=== PATIENT | female | born 1970 | race Caucasian/White ===

== ENCOUNTER 2016-11-01 18:35 | Inpatient (IN) | payer OTHER ==
--- NOTE | ~2016-11-01 | CO ---
Unit #: [id number] #: [id number] Patient: CELSO VALDEZ [id number] [place], [place] [address] [id number] I MR#: [id number] NAME: CELSO VALDEZ ROOM: 214 Age: 46 Sex: F Admission Date: 11/01/2016 : 1970 Attending Physician: Brooks Watson M.D. Consultation Date: 11/02/2016 CONSULTATION REPORT REASON FOR CONSULT Sleep apnea. HISTORY OF PRESENT ILLNESS This is a 46-year-old female who is well known to me from my office for sleep apnea and possible asthma/COPD, who presented to [facility] as a transfer from [facility] for possible incision and drainage by Surgery. Patient was seen last month at [facility] for wound infection, and she was transferred to [facility] for rehab and wound care. Apparently, patient was doing okay and getting better up until a couple of days ago when she started having some fever and started feeling sick again. She was evaluated by the infectious disease service who decided that patient needed more wound debridement, and she needed to be transferred back. Patient had a high fever at [place], and she was nauseated and vomited multiple times. She denied any cough, chest pain, or shortness of breath. Patient is well known to have sleep apnea, but she lost her CPAP and currently she does not have a new CPAP. PAST MEDICAL HISTORY 1. Chronic obstructive pulmonary disease. 2. Necrotizing fasciitis. 3. Chronic kidney disease. 4. Chronic anemia. 5. Morbid obesity. 6. Depression. 7. Hyperlipidemia. PAST SURGICAL HISTORY 1. Hand surgery. 2. Hardware removal of intramedullary screw from the third toe along with debridement of an abscess in April 2016. 3. Hysterectomy. 4. Cholecystectomy. SOCIAL HISTORY No history of alcohol, drug abuse, or smoking. FAMILY HISTORY Unremarkable. Unit #: [id number] #: [id number] Patient: CELSO VALDEZ ALLERGIES TETRACYCLINE, SULFA, VANCOMYCIN, ZOFRAN, AND HYDROCHLOROTHIAZIDE. HOME MEDICATIONS 1. Norvasc. 2. Pristiq. 3. Lopressor. 4. Protonix. 5. Synthroid. 6. Neurontin. 7. Singulair. 8. Hydralazine. 9. Lipitor. REVIEW OF SYSTEMS A 12-point review of systems was obtained from the patient and was negative except for what was mentioned in the History of Present Illness. PHYSICAL EXAMINATION GENERAL: Patient is not in acute distress. She is slightly sleepy. HEENT: Atraumatic, normocephalic. PERRLA. EOMI. NECK: Supple. No JVD, no lymphadenopathy. CHEST: Decreased breath sounds bilaterally but no wheezing. HEART: S1 and S2. No murmur, gallops, or rubs. ABDOMEN: Soft and nontender. Bowel sounds are positive. No hepatosplenomegaly. EXTREMITIES: Right lower extremity wound is wrapped. CENTRAL NERVOUS SYSTEM: Awake, alert, and oriented x3. No focal motor/sensory deficits. DIAGNOSTIC STUDIES LABORATORY: Creatinine 5.3. White blood count 4.1 and hemoglobin 7.2. ASSESSMENT 1. Wound dehiscence, right upper thigh, medial aspect, plus right lower leg medial and lateral aspect. 2. Cellulitis/wound infection. 3. Obstructive sleep apnea. 4. Diabetes. 5. End-stage renal disease. 6. Chronic obstructive pulmonary disease. 7. Hypertension. 8. Hyperlipidemia. PLAN 1. Patient is hemodynamically stable on room air. She is refusing to wear our BiPAP because she is claustrophobic. She is interested in CPAP only as an outpatient. 2. IV antibiotics per Infectious Disease pending surgical evaluation. 3. Bronchodilator. 4. Patient needs strict control of her blood sugar. 5. Blood pressure control. 6. DVT prophylaxis. 7. Physical therapy. I would like to thank Dr. Luque for allowing me to be part of this patient's care. Unit #: [id number] #: [id number] Patient: CELSO VALDEZ Dictated by... Clarence Roman TD: 11/02/2016 16:20 JOB #: [id number] CONSULTATION REPORT X JENNIFER GARCIA MD CONSULTATION REPORT
--- NOTE | ~2016-11-01 | BMI ---
[facility] Nutrition Therapy DATE: 11/02/16 Patient: CELSO VALDEZ Physician: ROSEMARIE Address: [address] [facility] Room/Bed: [address] [place] [address], Zip: [place] [address] Admit Date: 11/01/16 Date of : [birth year] Height: 5 4 Weight: 249 113 HIGH BMI NOTE: DX: 46 Y.O. FEMALE ADMITTED FOR CELLULITIS ANTHROPOMETRICS: 5'4", WT: 249# (113 KG), BMI: 42.7 DIET: CC INTERVENTION: 1. CC DIET RECOMMENDATIONS: 1. RECOMMEND TO ADD HH TO CURRENT DIET ORDER ABOVE TO PROMOTE GRADUAL WEIGHT LOSS TOWARDS HEALTHY BMI (19.0-25.0) OR +/-10%IBW RD WILL F/U PER PROTOCOL Respectfully, SOFI STOCKTON MS, RD, LD Food and Nutritional Services [facility] cc: client file
--- NOTE | ~2016-11-01 | HP ---
Unit #: [id number] #: [id number] Patient: MARGRET VALDEZ [id number] [address] [address] [id number] I MR#: [id number] NAME: MARGRET VALDEZ ROOM: 214 Age: 46 Sex: F Admission Date: 11/01/2016 : 1970 Attending Physician: Brooks Watson M.D. Referring Physician: No Primary Care Physician Primary Care Physician: No Primary Care Physician HISTORY AND PHYSICAL CHIEF COMPLAINT Transfer from [place] at [facility] for infected leg. HISTORY OF PRESENTING ILLNESS Ms. Margret Valdez is a 46-year-old morbidly obese female with multiple medical problems including diabetes mellitus, chronic kidney disease on hemodialysis, COPD, hypertension, hyperlipidemia, depression and was discharged from [facility] on October 19, 2016 after being treated for acute respiratory failure, COPD exacerbation and also lower extremity cellulitis, status post I/D by Dr. Foster for necrotizing fasciitis. Patient was discharged to [place] at [facility] for ongoing wound care and to complete PT/OT. According to patient, she was doing okay and then suddenly she started having worsening of pain. She was seen by infectious disease yesterday, Dr. Witt, started on IV antibiotics and today, as per Dr. Luke, she needed opening of her wound for cleaning and was transferred to [facility]. She is complaining of fever. According to her she had temperature of 101 yesterday. She has been having nausea and vomiting for the last three days. She does not complain of chest pain, no shortness of breath, no abdominal pain, no constipation or diarrhea, no dizziness. PAST MEDICAL HISTORY Past medical history as above which includes: 1. COPD. 2. Recent right leg I/D x2 in October 2016 for necrotizing fasciitis. 3. Chronic kidney disease, on hemodialysis. 4. Chronic anemia. 5. Morbid obesity. 6. Depression. 7. Hyperlipidemia. HOME MEDICATION Home medication is: 1. NovoLog sliding scale. 2. Tylenol 650 q.4 h. p.r.n. 3. Phenergan 12.5 mg IV q.6 h. p.r.n. 4. PhosLo 1334 mg t.i.d. 5. Norvasc 10 mg daily. 6. Acidophilus one capsule daily. 7. Nebulizer treatment q.6 h. 8. Pristiq 50 mg daily. 9. Antidiarrheal 4 mg q.6 h. p.r.n. 10. Aranesp 60 mcg injection weekly. Unit #: [id number] #: [id number] Patient: MARGRET VALDEZ 11. Metoprolol 100 mg q.12 h. 12. Zosyn 3.375 g injection q.12 h. 13. Morphine sulfate 1 mg IV q.4 h. p.r.n. 14. Zyvox 600 mg IV q.12 h. 15. Dakin's Solution modified q.12 h. 16. Protonix 40 mg daily. 17. Synthroid 0.05 mg daily. 18. Gabapentin 300 mg q.h.s. 19. Singulair 10 mg daily. 20. Hydralazine 10 mg q.4 h. 21. Lipitor 40 mg q.h.s. 22. Calcium 1200 mg daily. 23. B12 1000 mcg p.o. daily. PAST SURGICAL HISTORY 1. History of right third toe metatarsophalangeal joint disarticulation which was done on May 07, 2016. 2. Hardware removal of intramedullary screw from the third toe along with a debridement of an abscess in April 2016. 3. Hysterectomy. 4. Cholecystectomy. SOCIAL HISTORY She has no history of smoking, alcohol or drug abuse. FAMILY HISTORY Family history is unremarkable. ALLERGIES Tetracycline, sulfa, vancomycin, Zofran, hydrochlorothiazide. REVIEW OF SYMPTOMS As per history of presenting illness. PHYSICAL EXAMINATION GENERAL APPEARANCE: Patient is lying in bed, does not seem to be in any respiratory distress. She is awake, alert and oriented x3. VITAL SIGNS: Blood pressure 146/79. Respiratory rate 18. Pulse is 80. Temperature 98.4. HEENT: Head is normocephalic. Eye movements are normal. NECK: Neck is supple. CHEST: Has fair air entry, no additional sounds. CVS: S1, S2 positive, regular rhythm. ABDOMEN: Abdomen is soft. No tenderness. EXTREMITIES: Right lower extremity there is a wound dehiscence on the right medial aspect of the thigh, wound dehiscence on the right medial aspect of the lower leg and drainage, on the right lower leg on the lateral aspect there is drainage also present. Patient has had surgery on the foot. GROUP CHIEF OPERATOR: Awake, alert and oriented x3. No focal neurological deficits. DIAGNOSTIC STUDIES LABORATORY: Workup is pending. ASSESSMENT Patient is being admitted to a med/surg unit with: 1. Wound dehiscence right upper thigh medial aspect plus right lower leg medial and lateral aspect. Unit #: [id number] #: [id number] Patient: MARGRET VALDEZ 2. Cellulitis/wound infection. 3. Fever per patient 101 last night. 4. Diabetes mellitus type 2. 5. Chronic kidney disease on hemodialysis. 6. Chronic obstructive pulmonary disease. 7. Morbid obesity. 8. Hypertension. 9. Hyperlipidemia. 10. Depression. PLAN Plan is admit to med/surg unit. IV Zyvox 600 mg q.12 h. is being started. IV Zosyn 3.375 g q.12 h. is being started. LSA will be consulted; she may need I/D again. Wound Care consult will be done. Home medications have been reviewed and adjusted. Accu-Chek a.c. and h.s. with insulin sliding scale is being started. Blood cultures will be done. Labs will be repeated today. Dr. Patel to consult for ongoing hemodialysis. PT and INR will be done. Lactic acid will be done. Plan of care has been discussed with patient and patient's family at length. She does verbalize understanding. Dictated by Clarence Lopez/caridad TD: 11/01/2016 20:04 JOB #: [id number] HISTORY AND PHYSICAL X Naila Luque MD X HISTORY AND PHYSICAL
--- NOTE | ~2016-11-01 | CO ---
Unit #: [id number] #: [id number] Patient: CELSO VALDEZ [id number] [address] [address] [id number] I MR#: [id number] NAME: CELSO VALDEZ ROOM: 214 Age: 46 Sex: F Admission Date: 11/01/2016 : 1970 Attending Physician: Brooks Watson M.D. Primary Care Physician: Primary Care Physician No Consultation Date: 11/02/2016 CONSULTATION REPORT REASON FOR CONSULTATION Acute on chronic kidney disease. HISTORY OF PRESENT ILLNESS Ms. Valdez is a 46-year-old female, well known to us here at [facility] as we had seen her during her last admission here before being transferred to [place] for ongoing care. During that admission, she had developed acute on chronic kidney disease requiring dialysis likely related to acute tubular necrosis from sepsis syndrome and hypotension. The patient has remained dialysis dependent at [place] and is due for dialysis today. We have already made arrangements for that. The patient does still have some swelling. She was transferred here, because she needs some further debridement on her right leg. ID and surgery are seeing her. She denies any chest discomfort or shortness of breath. She says she is making a little bit more urine than when she left here previously. PAST MEDICAL HISTORY Significant for chronic kidney disease, stage 3 due to diabetes; hypertension; peripheral vascular disease; history of osteomyelitis; hypertension; obesity; obstructive sleep apnea; COPD; GERD; history of migraines; chronic anemia. PAST SURGICAL HISTORY Cholecystectomy, hysterectomy, and she has had toe amputations. CURRENT MEDICATIONS As follows; Lovenox 30 mg subcu daily, Aranesp 60 mcg subcu weekly, Os-Issac D b.i.d., vitamin B12 daily, Lipitor 40 mg at bedtime, Singulair 10 mg a day, Neurontin 300 mg at bedtime, Synthroid 50 mcg daily, Protonix 40 mg a day, metoprolol 100 mg every 12 hours, Pristiq 50 mg a day, probiotic daily, Norvasc 10 mg a day, PhosLo 2 tablets t.i.d. with meals, sliding scale insulin, linezolid 600 mg IV q.12 hours, Zosyn 3.375 g IV q.12 hours and p.r.n. ALLERGIES She has quoted allergies to hydrocodone, tetracycline, Bactrim, adhesive tape, IV magnesium, Zofran, vancomycin, and Levaquin. FAMILY HISTORY Negative for kidney problems. There is a family history of diabetes and hypertension. SOCIAL HISTORY The patient does not smoke or drink. Currently, no history of drug use. Unit #: [id number] #: [id number] Patient: CELSO VALDEZ REVIEW OF SYSTEMS A complete 12-point review of systems was completed with the above findings. In addition, she has had some low-grade fevers, none currently. No headaches. No dizziness. No nosebleed, sore throat, or earache. No chest pain or palpitations. No cough or hemoptysis. No nausea or vomiting. No abdominal pain. No rash or itching. No flank pain. No night sweats or hot flashes. No intolerance to heat or cold. No bleeding issues. Pain appears to be controlled. Unless otherwise indicated, the review of systems was negative. PHYSICAL EXAMINATION VITAL SIGNS: The patient is afebrile, pulse 72, respiratory rate 16, and blood pressure 149/78. GENERAL: This is a pleasant 46-year-old white female, who is alert and oriented x3, currently in no acute distress. HEENT: Head is atraumatic and normocephalic. Eyes show pale conjunctivae with no scleral icterus. No nasal drainage or nosebleed. Oropharynx is moist. She does have a narrow posterior pharyngeal airway. NECK: Thick with no JVD. HEART: Regular rate and rhythm with no murmur or rub appreciated. LUNGS: Clear anteriorly with no wheezing or rhonchi. Breathing is nonlabored. ABDOMEN: Soft, protuberant, nontender. Bowel sounds are present. EXTREMITIES: Right lower extremity has a wound dressing on it. Left lower extremity is noteworthy for 1+ pitting edema. SKIN: Without rashes. VASCULAR: The patient does have a tunneled catheter in place in her chest with no drainage or redness. MUSCULOSKELETAL: No CVA tenderness to palpation. NEUROLOGIC: Cranial nerves are grossly intact with no gross motor deficits. LYMPHATIC: There is no neck or cervical lymphadenopathy. PSYCHIATRIC: Mood and affect appear normal. DIAGNOSTIC STUDIES LABORATORY RESULTS: Hemoglobin this afternoon was 7.9. Chemistry earlier today sodium 132, potassium 4.2, chloride 95, bicarb 29, glucose 257, BUN 23, creatinine 5.3. White count earlier this morning was 4.1. Creatinine yesterday was 4.7 with an albumin of just 2.1, lactic acid level was 1.8. INR 1. ASSESSMENT AND PLAN 1. Acute on chronic kidney disease with chronic kidney disease being from diabetic nephropathy. If her acute kidney injury from acute tubular necrosis has not improved then we will continue dialysis three times a week while here at [facility]. 2. Anemia of chronic disease. EPO has been ordered with dialysis and we can transfuse as needed. 3. Hypertension. With her swelling I will decrease her Norvasc and we can use other medications such as hydralazine or clonidine or Cardura if needed. 4. Diabetes with history of poor control. 5. Right lower extremity wound on antibiotics and with Surgery following for possible further debridement. 6. History of group A strep sepsis. 7. Chronic obstructive pulmonary disease. Unit #: [id number] #: [id number] Patient: CELSO VALDEZ I would like to thank Dr. Luque for this consult and the opportunity to participate in evaluation and care of Ms. Valdez. Dictated by... Kael Momin Jr., M.D. NICHOLAS/donte TD: 11/03/2016 00:32 JOB #: [id number] CONSULTATION REPORT X Kael Momin MD X CONSULTATION REPORT
--- NOTE | ~2016-11-01 | DS ---
Unit #: [id number] #: [id number] Patient: CELSO VALDEZ [id number] [address] [address] [id number] I MR#: [id number] NAME: CELSO VALDEZ ROOM: 214 Age: 46 Sex: F Admission Date: 11/01/2016 : 1970 Discharge Date: 11/05/2016 Attending Physician: Brooks Watson M.D. Referring Physician: Primary Care Physician No Primary Care Physician: Primary Care Physician No DISCHARGE SUMMARY CONSULTATION DURING HOSPITALIZATION 1. Dr. Witt from Infectious Disease Services. 2. Dr. Walker from [facility]. 3. Dr. Patel from Renal Services. 4. Dr. Solitario from Endocrinology Services. DISCHARGE DIAGNOSES 1. Wound dehiscence right upper thigh, medial aspect plus right lower leg medial and lateral aspect. 2. Cellulitis/wound infection. 3. Diabetes mellitus. 4. End-stage renal disease, on hemodialysis. 5. Hypertension. 6. Obstructive sleep apnea. 7. Chronic obstructive pulmonary disease. 8. Hyperlipidemia. 9. Morbid obesity. 10. Depression. 11. Hypothyroidism. DISCHARGE MEDICATIONS Vitamin B12 1000 mcg daily, Synthroid 50 mcg daily, PhosLo 1334 t.i.d. with meals, calcium plus vitamin D 1200 daily, Protonix 40 mg daily, Singulair 10 mg daily, Levemir 15 units subcu b.i.d., Lipitor 40 mg at bedtime, Lopressor 100 mg q.12, Norvasc 2.5 mg daily, Lactobacillus one capsule daily, Pristiq 50 mg daily, gabapentin 300 mg at bedtime, Tylenol q.6 p.r.n., nebulizer treatment with albuterol and Atrovent q.i.d. DIAGNOSTIC STUDIES LABORATORY RESULTS: Lab work upon discharge; sodium 137, potassium 4.3, chloride 103, BUN 9, creatinine 3.0, calcium 7.7. WBC 3.7, hemoglobin 9.8, hematocrit 29.1, and platelet count of 140. Blood culture, no growth. Lactic acid on admission 1.8. HOSPITAL COURSE A 46-year-old morbidly obese female, who was transferred from [place] at [facility] for infected leg wounds. The patient was admitted to telemetry unit. The patient recently had I and D done on 10/18/[address] Foster and was discharged to rehab facility for wound care. The patient was readmitted from [place], because of dehiscence of wound. Dr. Walker was consulted and wound care was started. Dr. Witt was consulted. The patient was started on IV antibiotics, which included IV Zyvox and IV Zosyn. The patient has completed a course of antibiotic as Unit #: [id number] #: [id number] Patient: CELSO VALDEZ per Dr. Witt. The patient is stable and is being discharged home on no antibiotics. The patient was also seen by Dr. Momin and Dr. Patel from Renal Services and hemodialysis was continued. Hemodialysis outpatient will be as per Renal. The patient did have anemia possible secondary to blood loss possible from wound. The patient did receive packed RBC transfusion during hospitalization. On discharge, hemoglobin is 9.2 that needs to be continued as an outpatient. The patient's diabetes was uncontrolled and was started on Levemir, increase the dose. Dr. Solitario was consulted. The patient's glucose this morning is 98. DISCHARGE PHYSICAL EXAMINATION VITAL SIGNS: Blood pressure is 163/87, respiratory rate 16, pulse is 86, temperature 98.8. HEENT: Head is normocephalic. NECK: Supple. CHEST: Fair air entry. No additional sounds. CVS: S1, S2 positive. Regular rhythm. ABDOMEN: Obese and soft. EXTREMITIES: Right lower extremity dressing is present. Pulses are palpable. DISCHARGE INSTRUCTIONS 1. Follow up with primary care provider in 1 week. 2. [facility] to follow the patient at home for wound care. 3. Medication as per med rec. 4. Follow up with [facility] [phone] extension 6. The patient supposed to call to make appointment. The plan of care has been discussed with patient at length. She does verbalize understanding. Dictated by... Clarence Lopez/donte TD: 11/08/2016 05:13 JOB #: [id number] DISCHARGE SUMMARY X Naila Luque MD X DISCHARGE SUMMARY
[~2016-11-01 18:35] MED LIST: 24 HOUR ALLER15.8 ML; ACIPHEX20 MG PO; ACTOS PO; ALBUTEROL17 GM INH; ALEVE220 M1 PO; ANORO ELLIPTA1 EACH INH; ARTIFICIAL TEAR15 M3 OP; ASPIRIN PO; ASPIRIN81 M2 PO; ATENOLOL PO; ATIVAN PO; AUGMENTIN PO; AVANDIA; AVANDIA PO; B-12500 MCG PO; B12 PO; BACTROBAN15 GM TOP; BENZONATATE PO; BUMEX1 MG PO; BYETTA10 MCG/0.0; BYETTA10 MCG/0.0 INJ; CALCIUM + D 6001 TA1 PO; CALCIUM + VITAM1 TAB PO; CARAFATE1 G PO; CARDIZEM30 MG PO; CLARITIN R10 MG REDI PO; CLARITIN10 MG PO; COLESTID PO; COMBIVENT U/D3 M1 INH; CYANOCOBALAM1000 MCG PO; DARVOCET-N 1001 TAB PO; DOXYCYCLINE HY100 M3 PO; EC-NAPROSYN500 MG PO; EFFEXOR PO; EFFEXOR XR150 MG PO; EFFEXOR75 M2 PO; EFFEXOR75 MG PO; ESTRACE; ESTRACE PO; FERRO-TIME325 MG PO; FLEXERIL10 M1 PO; FLONASE16 GM; GABAPENTIN300 M2 PO; GABAPENTIN300 MG PO; GUAIFENESIN600 MG PO; HEARTBURN RELI150 M1 PO; HUMALOG100 U/M1 SUBQ; HUMALOG100 U/M2 SUBQ; HUMALOG100 U/ML; HUMALOG100 U/ML SUBQ; HUMULIN R100 U/ML SUBQ; HYDRALAZINE HC100 MG PO; HYDRALAZINE HCL25 MG PO; HYDRALAZINE HCL50 MG PO; HYDROCHLOROTHIA25 MG PO; IMITREX PO; IMITREX50 MG PO; IPRATR-ALBUTEROL3 ML INH; KEFLEX PO; KEFLEX500 MG PO; KETOPROFEN PO; LANTUS SOLOSTAR3 ML SUBQ; LANTUS100 U/M1 SUBQ; LANTUS100 U/ML; LANTUS100 U/ML INJ; LANTUS100 U/ML SUBQ; LANTUS100 UNITS/ SUBQ; LASIX PO; LEVAQUIN PO; LEVOTHYROXINE50 MC1 PO; LEXAPRO PO; LIPITOR40 MG PO; LISINOPRIL PO; LISINOPRIL-HCTZ1 T18 PO; LISINOPRIL-HCTZ1 T19 PO; LISINOPRIL10 MG PO; LORTAB 5/500 TA1 TA1 PO; LORTAB 7.5-3251 EACH PO; LOSARTAN POTASS50 MG PO; METOPROLOL TAR25 MG PO; METOPROLOL TART25 MG PO; MONTELUKAST SOD10 MG PO; MOTRIN400 MG PO; MUCINEX DM1 TAB.SR . PO; NAPROSYN500 MG PO; NEURONTIN100 MG PO; NEURONTIN300 MG PO; NORVASC; NOVOLOG FL100 UNIT/1 SUBQ; NOVOLOG100 U/M1 SUBQ; NOVOLOG100 U/M2 SQ; NOVOLOG100 U/M2 SUBQ; NOVOLOG100 U/ML INJ; NOVOLOG100 U/ML SQ; NOVOLOG100 U/ML SUBQ; OXYGEN; PAIN RELIEF325 M1 PO; PANTOPRAZOLE SO40 MG PO; PERCOCET10 PO; PERCOCET5/325 PO; PERCOCET7.5 PO; PHENERGAN25 MG PO; POSTURE600 MG PO; PRISTIQ50 MG PO; PROTONIX PO; REGLAN PO; REGLAN5 MG PO; SKELAXIN PO; SUMATRIPTAN SU100 MG PO; SYMBICORT INH; SYNTHROID0.05 MG PO; TOPAMAX; TOPAMAX PO; TOPAMAX200 MG PO; TOPAMAX50 MG PO; TORSEMIDE100 M1 PO; TOUJEO SOL300 UNIT/1 SUBQ; TRADJENTA5 MG PO; TRAMADOL HCL50 M1 PO; TROKENDI XR25 MG PO; TYLENOL325 M1 PO; VANCOMYCIN HCL1 GM IM; VICODIN 5/1 TAB 5/50 PO; VICODIN 5/500 T1 TAB PO; VICTOZA0.6 MG/0.1 SUBQ; VIT B-12 PO; VIT B12 PO; VITAMIN B 12 SHOT; WELCHOL625 MG PO; ZANAFLEX2 M1 PO; ZANAFLEX4 M1 PO; ZANTAC PO; ZESTRIL10 M1 PO; ZESTRIL2.5 MG PO; ZITHROMAX PO; ZOCOR PO; ZOCOR10 MG PO; ZOLOFT PO; ZOLOFT100 MG PO; ZYVOX600 MG PO; [UNRECOGNIZED DRUG - REMARK]
[2016-11-01] MEDS ORDERED: PROTONIX PO (18:49)
[2016-11-01] MEDS ORDERED: ZYVOX600 MG IV (18:50)
[2016-11-01] MEDS ORDERED: DAKIN'S MODIF1000 ML EXT (18:50)
[2016-11-01] MEDS ORDERED: MORPHINE SU4 MG/1 ML IV (18:51)
[2016-11-01] MEDS ORDERED: ZOSYN INJ (18:55)
[2016-11-01] MEDS ORDERED: METOPROLOL TAR100 MG PO (18:55)
[2016-11-01] MEDS ORDERED: ARANESP60 MCG/ML INJ (18:56)
[2016-11-01] MEDS ORDERED: PRISTIQ50 MG PO (18:57)
[2016-11-01] MEDS ORDERED: ANTI-DIARRHEAL2 M1 PO (18:57)
[2016-11-01] MEDS ORDERED: ALB/IPRATROPIUM/1 E1 INH (18:58)
[2016-11-01] MEDS ORDERED: NORVASC10 MG PO (18:59)
[2016-11-01] MEDS ORDERED: ACIDOPHILUS LAC1 CAP PO (18:59)
[2016-11-01] MEDS ORDERED: PHOSLO667 MG PO (19:00)
[2016-11-01] MEDS ORDERED: TYL325 PO (19:01)
[2016-11-01] MEDS ORDERED: PHENERGAN12.5 MG/0. IV (19:01)
[2016-11-01] MEDS ORDERED: [UNRECOGNIZED DRUG - OTHER] PO (19:02)
[2016-11-01] MEDS ORDERED: NOVOLOG100 U/ML (19:03)
[2016-11-01 21:10] LABS: BASOPHIL% 0.8 % (0-2.5); DIFF IND YES; EOSINOPHIL# 0.2 X10e3 (0-0.7); EOSINOPHIL% 3.6 % (0.0-7.0); HEMATOCRIT 23.5 % (35.0-45.0); HEMOGLOBIN 7.8 gm/dL (12.0-16.0); LYMPHOCYTE# 0.9 X10e3 (1.0-3.5); LYMPHOCYTE% 20.3 % (17.0-45.0); MEAN CELL VOLUME 89.5 FL (83-96); MEAN CORPUSCULAR HEMOGLOBIN 29.6 PG (28-34); MEAN CORPUSCULAR HGB CONC 33.1 g/dL (30-36); MEAN PLATELET VOLUME 7.9 FL (6.5-11.5); MONOCYTE# 0.5 X10e3 (0-1.0); MONOCYTE% 11.2 % (3.0-12.0); NEUTROPHIL# 2.8 X10e3 (1.5-7.1); NEUTROPHIL% 64.1 % (40-75); PLATELET COUNT 133 X10e3 (140-420); RED BLOOD COUNT 2.63 X10e (3.90-5.30); RED CELL DISTRIBUTION WIDTH 14.2 % (11.0-15.5); WHITE BLOOD COUNT 4.4 X10e3 (4.0-10.5)
[2016-11-01 21:21] LABS: PROTHROMBIN TIME (PATIENT) 10.8 SECONDS (9.6-11.5)
[2016-11-01 21:45] LABS: ALBUMIN SERUM 2.1 g/dL (3.5-5.0); BILIRUBIN,TOTAL 0.6 mg/dL (0.2-2.0); BUN/CREATININE RATIO 4.68; CALCIUM SERUM 7.6 mg/dL (8.4-10.2); CREATININE SERUM 4.7 mg/dL (0.6-1.4); GLOM FILT RATE Estimated 10.6 mL/min (>60); POTASSIUM 4.3 mmol/L (3.5-5.1)
[2016-11-01 22:55] LABS: HYPOCHROMIA SL; PLATELET ESTIMATE DECREASED (NORMAL); SMUDGE CELLS 5 /100
[2016-11-01 22:56] LABS: RBC NORMAL YES
[2016-11-02 05:38] LABS: HEMATOCRIT 21.9 % (35.0-45.0); HEMOGLOBIN 7.2 gm/dL (12.0-16.0); MEAN CORPUSCULAR HEMOGLOBIN 29.2 PG (28-34); MEAN CORPUSCULAR HGB CONC 32.8 g/dL (30-36); MEAN PLATELET VOLUME 7.6 FL (6.5-11.5); RED BLOOD COUNT 2.46 X10e (3.90-5.30); RED CELL DISTRIBUTION WIDTH 14.4 % (11.0-15.5); WHITE BLOOD COUNT 4.1 X10e3 (4.0-10.5)
[2016-11-02 06:14] LABS: BUN/CREATININE RATIO 4.33; CALCIUM SERUM 7.6 mg/dL (8.4-10.2); CREATININE SERUM 5.3 mg/dL (0.6-1.4); GLOM FILT RATE Estimated 9.2 mL/min (>60); POTASSIUM 4.2 mmol/L (3.5-5.1)
[2016-11-02 14:36] LABS: HEMATOCRIT 23.4 % (35.0-45.0); HEMOGLOBIN 7.9 gm/dL (12.0-16.0)
[2016-11-03 05:33] LABS: EOSINOPHIL# 0.1 X10e3 (0-0.7); EOSINOPHIL% 2.9 % (0.0-7.0); HEMATOCRIT 20.8 % (35.0-45.0); LYMPHOCYTE# 0.9 X10e3 (1.0-3.5); LYMPHOCYTE% 25.5 % (17.0-45.0); MEAN CELL VOLUME 88.5 FL (83-96); MEAN CORPUSCULAR HEMOGLOBIN 29.5 PG (28-34); MEAN CORPUSCULAR HGB CONC 33.3 g/dL (30-36); MEAN PLATELET VOLUME 7.5 FL (6.5-11.5); MONOCYTE# 0.4 X10e3 (0-1.0); MONOCYTE% 11.6 % (3.0-12.0); PLATELET COUNT 136 X10e3 (140-420); RED BLOOD COUNT 2.35 X10e (3.90-5.30); WHITE BLOOD COUNT 3.4 X10e3 (4.0-10.5)
[2016-11-03 05:39] LABS: DIFF IND NO; HEMOGLOBIN 6.9 gm/dL (12.0-16.0)
[2016-11-03 06:10] LABS: BUN/CREATININE RATIO 3.52; CALCIUM SERUM 7.6 mg/dL (8.4-10.2); CREATININE SERUM 3.4 mg/dL (0.6-1.4); GLOM FILT RATE Estimated 15.4 mL/min (>60); PHOSPHOROUS 2.6 mg/dL (2.5-4.6); POTASSIUM 4.1 mmol/L (3.5-5.1)
[2016-11-04 04:46] LABS: HEMATOCRIT 27.1 % (35.0-45.0); MEAN CELL VOLUME 87.9 FL (83-96); MEAN CORPUSCULAR HEMOGLOBIN 29.9 PG (28-34); MEAN CORPUSCULAR HGB CONC 34.1 g/dL (30-36); MEAN PLATELET VOLUME 7.1 FL (6.5-11.5); RED BLOOD COUNT 3.08 X10e (3.90-5.30); RED CELL DISTRIBUTION WIDTH 15.5 % (11.0-15.5); WHITE BLOOD COUNT 4.3 X10e3 (4.0-10.5)
[2016-11-04 04:57] LABS: HEMOGLOBIN 9.2 gm/dL (12.0-16.0)
[2016-11-04 05:17] LABS: BUN/CREATININE RATIO 3.55; CALCIUM SERUM 7.3 mg/dL (8.4-10.2); CREATININE SERUM 4.5 mg/dL (0.6-1.4); GLOM FILT RATE Estimated 11.1 mL/min (>60); POTASSIUM 4.1 mmol/L (3.5-5.1)
[2016-11-05 05:50] LABS: HEMATOCRIT 29.1 % (35.0-45.0); HEMOGLOBIN 9.8 gm/dL (12.0-16.0); MEAN CELL VOLUME 87.9 FL (83-96); MEAN CORPUSCULAR HEMOGLOBIN 29.7 PG (28-34); MEAN CORPUSCULAR HGB CONC 33.7 g/dL (30-36); MEAN PLATELET VOLUME 6.8 FL (6.5-11.5); RED BLOOD COUNT 3.31 X10e (3.90-5.30); RED CELL DISTRIBUTION WIDTH 15.3 % (11.0-15.5); WHITE BLOOD COUNT 3.7 X10e3 (4.0-10.5)
[2016-11-05 06:59] LABS: CALCIUM SERUM 7.7 mg/dL (8.4-10.2); GLOM FILT RATE Estimated 17.8 mL/min (>60); POTASSIUM 4.3 mmol/L (3.5-5.1)
[2016-11-05] MEDS ORDERED: BACTROBAN15 GM TOP (13:30)
[2016-11-05] MEDS ORDERED: SANTYL15 G1 TOP (13:31)
[2016-11-05] MEDS ORDERED: LANTUS100 U/ML SUBQ (13:33)
[2016-11-07 07:39] LABS: CALCIUM (PTHINTACT) 7.4 mg/dL (8.6-10.2)
[2016-11-24] MEDS ORDERED: VASCEPA1 GM PO (12:24)
[2017-02-05] MEDS ORDERED: TRESIBA FL100 UNIT/1 SUBQ (08:21)
[2017-02-05] MEDS ORDERED: TROKENDI XR25 MG PO (08:23)
[2017-02-05] MEDS ORDERED: TORSEMIDE100 M1 PO (08:24)
[2017-02-05] MEDS ORDERED: VASCEPA1 GM PO (08:28)
[2017-02-05] MEDS ORDERED: REGLAN PO (13:41)
[2017-02-05] MEDS ORDERED: PROTONIX PO (13:59)
[2017-02-05] MEDS ORDERED: CALCIUM ACETAT667 M1 PO (14:00)
[2017-02-05] MEDS ORDERED: GABAPENTIN300 MG PO (14:00)
[2017-02-05] MEDS ORDERED: ACIDOPHILUS1 EAC3 PO (14:00)
[2017-02-05] MEDS ORDERED: LIPITOR PO (14:00)
[2017-02-05] MEDS ORDERED: CLARITIN10 M2 PO (14:01)
[2017-02-05] MEDS ORDERED: SINGULAIR PO (14:03)
[2017-02-05] MEDS ORDERED: DESVENLAFAXINE50 M1 PO (14:03)
[2017-02-05] MEDS ORDERED: NOVOLOG100 U/ML INJ (14:07)
== END 2016-11-05 14:36 | disposition home health service (06) | DRG 919 ==
LOC: C2A 18:35
PROVIDERS: Hospitalist; Internal Medicine Nephrology
PROC: 5A1D60Z (ICD-10-PCS; principal; 2016-11-02)
PROC: 30233N1 Transfusion of Nonautologous Red Blood Cells into Peripheral Vein, Percutaneous Approach (ICD-10-PCS; 2016-11-03)
DX: T81.31XA Disruption of external operation (surgical) wound, not elsewhere classified, initial encounter (principal); N18.6 End stage renal disease; N17.0 Acute kidney failure with tubular necrosis; L03.115 Cellulitis of right lower limb; E11.21 Type 2 diabetes mellitus with diabetic nephropathy; I12.0 Hypertensive chronic kidney disease with stage 5 chronic kidney disease or end stage renal disease; D62 Acute posthemorrhagic anemia; Z68.41 Body mass index [BMI] 40.0-44.9, adult; R50.9 Fever, unspecified; E11.22 Type 2 diabetes mellitus with diabetic chronic kidney disease; Z99.2 Dependence on renal dialysis; Z79.84 Long term (current) use of oral hypoglycemic drugs; J44.9 Chronic obstructive pulmonary disease, unspecified; E66.01 Morbid (severe) obesity due to excess calories; E78.5 Hyperlipidemia, unspecified; F32.9 Major depressive disorder, single episode, unspecified; I73.9 Peripheral vascular disease, unspecified; G47.33 Obstructive sleep apnea (adult) (pediatric); K21.9 Gastro-esophageal reflux disease without esophagitis; G43.909 Migraine, unspecified, not intractable, without status migrainosus; Z90.49 Acquired absence of other specified parts of digestive tract; Z90.710 Acquired absence of both cervix and uterus; Z89.429 Acquired absence of other toe(s), unspecified side
CPT/HCPCS: 80048; 80053; 82310; 82550; 82947; 83605; 83970; 84100; 85014; 85018; 85025; 85027; 85610; 85730; 86850; 86900; 86901; 86923; 87040; 94760; J0885; J1644; J1650; J1815; J2020; J2270; J2543; J2550; P9016; Q4081

== ENCOUNTER 2016-11-24 12:39 | Inpatient (IN) | payer OTHER ==
--- NOTE | ~2016-11-24 | BMI ---
[facility] Nutrition Therapy DATE: 11/25/16 Patient: CELSO VALDEZ Physician: RADHA Address: [address] [place] [address] Room/Bed: [address] [place] [address], Zip: [place] [address] Admit Date: 11/24/16 Date of : [birth year] Height: 5 4 Weight: 210 95.4 HIGH BMI NOTE: DX: PATIENT ADMITTED FOR ABDOMINAL PAIN WITH N/V ANTHROPOMETRICS: HT: 5'4", WT: 251#, BMI: 43.1 DIET: CC DIET RECOMMENDATIONS: RECOMMEND ADDING HEART HEALTHY TO CURRENT DIET ORDER TO PROMOTE A STEADY WEIGHT LOSS TOWARDS A HEALTHY BMI OF 19-25 Respectfully, SERGIO BENNETT, MENDY, LD Food and Nutritional Services [facility] cc: client file
--- NOTE | ~2016-11-24 | CO ---
Unit #: [id number] #: [id number] Patient: CELSO NICK [id number] [address] [address] [id number] I MR#: [id number] NAME: CELSO NICK ROOM: 566 Age: 46 Sex: F Admission Date: 11/24/2016 : 1970 Attending Physician: Naila Luque M.D. Consultation Date: 11/24/2016 CONSULTATION REPORT REASON FOR CONSULTATION Acute on chronic kidney disease. HISTORY OF PRESENT ILLNESS Ms. Nick is a 46-year-old female, who is very familiar to our service as we have been following her over the past few months for acute on chronic kidney disease which has been dialysis dependent due to acute tubular necrosis from previous sepsis syndrome and infection with low blood pressure. The patient has been getting dialysis on Tuesdays, , and Saturdays and will be due tomorrow. She presented to the emergency room, because of several day history of nausea and vomiting and now with diarrhea. The patient says that she has been having trouble off and on with nausea and vomiting for the last several weeks. She has not had any fevers or chills per se. She says her right leg wounds are healing and she is now off antibiotics. She denies any shortness of breath. She reports very good urine output as of late and she is noted to be on torsemide. 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 PAST SURGICAL HISTORY Cholecystectomy, hysterectomy, toe amputations, and ovarian tumor removed. CURRENT MEDICATIONS As follows Vascepa 1 g daily, calcium plus vitamin D daily, vitamin B12 daily, topiramate 25 mg a day, Protonix 40 mg a day, hydralazine 25 mg b.i.d., calcium acetate daily, also Lipitor daily, gabapentin 300 mg a day, NovoLog 28 units subcu t.i.d., Lantus insulin 38 units subcu b.i.d., torsemide 100 mg a day, Lactobacillus daily, Claritin daily, Synthroid 50 mcg daily, desvenlafaxine 50 mg a day, Singulair 10 mg a day. ALLERGIES She has multiple drug allergies including hydrocodone, Bactrim, adhesive tape, Zofran, vancomycin, and Levaquin. FAMILY HISTORY Negative for kidney disease with no one in the family on dialysis; however, there is a family history of hypertension and diabetes. SOCIAL HISTORY Unit #: [id number] #: [id number] Patient: CELSO NICK No active tobacco or alcohol use. No drug use. REVIEW OF SYSTEMS A complete 12-point review of systems was completed with the above findings. In addition, she has not had any headaches or dizziness. No nosebleed. No sore throat or earache. No chest pain or palpitations. No hematemesis. No bright red blood per rectum or melena. No dysuria or hematuria. No significant swelling. No rashes or itching. No flank pain. No chills. No night sweats or hot flashes. No intolerance to heat or cold. No bleeding issues. Unless otherwise indicated, the review of systems was negative. PHYSICAL EXAMINATION VITAL SIGNS: The patient is afebrile, pulse 98, respiratory rate 16, and blood pressure 166/89. GENERAL: This is a 46-year-old female, alert, does appear queasy, but in no acute distress. HEENT: Head is atraumatic and normocephalic. Eyes show pale conjunctivae with no scleral icterus. No nasal drainage or nosebleed. Oropharynx is dry. No thrush. She does have a narrow posterior pharyngeal airway. NECK: Thick with no JVD. HEART: Regular rate and rhythm with no significant murmur or rub appreciated. LUNGS: Show diminished breath sounds with no wheezing. Breathing is nonlabored. ABDOMEN: Protuberant, but soft. Nontender. There are bowel sounds present. EXTREMITIES: Right lower extremity is wrapped with dressing. There is no left lower extremity pitting edema. SKIN: Without rashes. MUSCULOSKELETAL: No CVA tenderness to palpation. NEUROLOGIC: Cranial nerves are grossly intact with no gross motor deficits. LYMPHATIC: There is no neck or cervical lymphadenopathy. PSYCHIATRIC: Mood and affect appear normal. DIAGNOSTIC STUDIES IMAGING STUDIES: There was a CT scan of the abdomen and pelvis that was done without contrast that showed some patchy bibasilar infiltrates, nothing else that was acute. LABORATORY RESULTS: Urinalysis showed 1+ protein and a few red blood cells and white blood cells with 1+ bacteria. Culture will be pending. CBC showed a white count of 6, hemoglobin 8.3, platelet count 238. Chemistry showed a sodium of 137, potassium of 3.2, chloride 104, bicarb 24, glucose 162, BUN 13, creatinine 2.6. Last creatinine levels have been ranging in the hospital here in the low to mid 4s. ASSESSMENT AND PLAN 1. Acute on chronic kidney disease, stage 4. Creatinine is trending lower and with improved urine output. We will hold her dialysis for now and monitor her for recovery. She may very well be a little dehydrated with her nausea and vomiting and diarrhea and I will hold her torsemide and gently give her some fluids overnight with recheck of labs in the morning. 2. Hypokalemia. I will be adding potassium to her IV fluids and holding her torsemide. She also has had GI losses. 3. Hypertension. Home hydralazine has been restarted. Unit #: [id number] #: [id number] Patient: CELSO NICK 4. Nausea, vomiting, and diarrhea. Stool cultures have been ordered. This has been an off and on issue for several weeks and I wonder if this is not gastroparesis I will recheck a hemoglobin A1c. 5. Wound on the right leg, for which she is off antibiotics. I would like to thank you for this consult and the opportunity to participate in evaluation and care of Ms. Nick. Dictated by... Kael Momin Jr., M.D. NICHOLAS/donte TD: 11/24/2016 23:24 JOB #: [id number] CONSULTATION REPORT Page 1 of 1 X Kael Momin MD X CONSULTATION REPORT
--- NOTE | ~2016-11-24 | DS ---
Unit #: [id number] #: [id number] Patient: CELSO VALDEZ [id number] [place], [place] [address] [id number] I MR#: [id number] NAME: CELSO VALDEZ ROOM: 566 Age: Sex: F Admission Date: 11/24/2016 : 1970 Discharge Date: 11/29/2016 Attending Physician: Naila Luque M.D. DISCHARGE SUMMARY FINAL DIAGNOSES 1. Acute on chronic kidney disease stage 4 on hemodialysis at this time per Dr. Patel. She has known oliguric. The patient will require a vein mapping which was done in the hospital. Actually, Dr. Selby will review the vein map to determine best option for her long-term access. Tentatively, it will be scheduled as outpatient as per Dr. selby. 2. Nausea and vomiting, which is stable at this time. The patient had esophagogastroduodenoscopy done, was seen by Dr. Glover, which shows 4 bezoar and severe gastroparesis. The patient has been started on Reglan and is on clear liquids at this time. She needs to advance diet very slowly. This was discussed with the patient. She does verbalize understanding. She really wants to go home today. The patient should follow up with Dr. Glover as an outpatient. 3. Hypertension. The patient's medications adjusted during hospitalization. Coreg dose has been increased and other medications have been adjusted. Please refer to med rec for further details information. 4. Urinary tract infection with urine culture positive for VRE. The patient received IV Zyvox during hospitalization and is being changed to p.o. I have given it to watch case polisher to eval the cost on Zyvox. 5. Questionable pneumonia. There was a question of pneumonia on admission. The patient was placed on Zosyn on admission, hence decided that the patient does not have pneumonia. CT scan of the chest was done during hospitalization. It showed bibasilar tree-in-bud opacities most characteristic of an inflammatory or infectious process. Lungs were otherwise clear. The patient will require a repeat CT scan as outpatient in 6 to 12 months. The patient needs to follow up with Dr. Pozo in 2 to 3 weeks. The patient will need a sleep study arranged. 6. Anemia. The patient does have anemia, status post IV iron transfusion and EPO with hemodialysis. 7. Diabetes mellitus, after which is stable, the patient's insulin has been adjusted. Continue checking blood sugars at home. 8. Chronic obstructive pulmonary disease, which is stable at this time. DISCHARGE MEDICATIONS Zyvox 600 mg p.o. b.i.d. for 7 days, cyanocobalamin 500 mcg daily, Neurontin 300 mg daily, Pristiq 50 mg daily, Tylenol 650 q.4 p.r.n., mag oxide 400 mg daily, furosemide 80 mg daily, Coreg 12.5 mg b.i.d., Claritin 10 mg daily, Acidophilus one capsule daily, Levemir 19 units subcu b.i.d., hydralazine 50 mg t.i.d., Lipitor 40 mg at bedtime, Synthroid 50 mcg daily, Os-Issac 500 mg daily, Protonix 40 mg daily, Singulair 10 mg daily, Reglan 10 mg t.i.d. DIAGNOSTIC STUDIES Unit #: [id number] #: [id number] Patient: CELSO VALDEZ LABORATORY RESULTS: On discharge; sodium 130, potassium 3.7, chloride 101, BUN 14, creatinine 3.2. WBC 6.7, hemoglobin 8.4, hematocrit 25.8, and platelet count of 175. Urine culture; Enterococcus species seen, which is vancomycin resistant. OBJECTIVE VITAL SIGNS: On discharge, blood pressure is 150/81, respiratory rate 24, pulse is 79, temperature 97.5. HEENT: Normocephalic. CHEST: Fair air entry. CVS: S1 and S2 positive. Regular rhythm. EXTREMITIES: Right lower extremity dressing is present for wound. DISCHARGE INSTRUCTIONS The patient is being discharged home if okay with Dr. Patel. MEDICATIONS As per med rec. FOLLOWUP 1. Follow up primary care provider in [address] week[address] Glover in 3 to 4 weeks. 3. Hemodialysis needs to be continued as per Dr. Patel's recommendation. 4. Follow up Dr. Pozo in 2 to [address] scan of the chest needs to be done in 6 to 12 months. 6. The patient does have a right lower extremity wounds, which are healing very well. She needs to continue wound care. 7. Plan of care discussed with the patient at length. All questions are answered. Dictated by... Clarence Lopez TD: 11/30/2016 01:45 JOB #: [id number] DISCHARGE SUMMARY Page 1 of 1 X Naila Luque MD X DISCHARGE SUMMARY
--- NOTE | ~2016-11-24 | CT57 ---
[facility] A Service of [facility] RADIOLOGY TEXT RESULTS PATIENT: CELSO VALDEZ LOCATION: [facility] 5602-01 : [birth year] UNIT #: [id number] AGE: [address]: Naila Luque MD SEX: F ORDER DR: [id number] [facility] [address]. [place], [place] [address] [id number] I MR#: [id number] Acc #: [id number] NAME: CELSO VALDEZ : 1970 SEX: F STUDY DATE/TIME: 11/27/2016 20:06 UNIT: [facility] ROOM: [facility] STUDY DESCRIPTION: CT Chest Wo Cont Attending Physician: Naila Luque M.D. Ordering Physician: Tai Grant M.D. Primary Care Physician: No Primary Care Physician MEDICAL IMAGING REPORT This report is preliminary unless electronic signature is present EXMA Chest CT no contrast 11/27/2016 INDICATIONS Short of air 2 weeks. Abnormal lung findings on abdomen and pelvis CT performed recently. Multiple prior surgeries. Diabetes. TECHNIQUE Noncontrast CT chest was performed. COMPARISON Correlation is made with abdomen and pelvis CT 11/24/[address] exam was performed with one or more of the following radiation dose reduction techniques: Automatic exposure control, adjustment of mA and/or kV according to patient size, and iterative reconstruction. FINDINGS CT chest. No pleural effusion. Patchy tree-in-bud infiltrates in the posteromedial lower lobes bilaterally have decreased slightly in conspicuity. There is a 6 mm nodular density associated with the infiltrate in the left lower lobe, likely inflammatory or infectious. Suggest interval followup CT in 6-12 months if the patient is at low risk for malignancy. If the patient is at high risk followup should occur at 3-6 months. The lungs are otherwise clear. Included thyroid unremarkable. The heart is enlarged. No pericardial effusion or axillary adenopathy. Reactive-appearing mediastinal nodes are present. Aorta demonstrates no aneurysm. [facility] A Service [facility] RADIOLOGY TEXT RESULTS PATIENT: CELSO VALDEZ LOCATION: [facility] : [birth year] UNIT #: [id number] AGE: [address]: Naila Luque MD SEX: F ORDER DR: Included upper abdomen demonstrates surgical absence of the gallbladder but no acute finding. Osseous structures demonstrate no suspicious bone lesion. Right-sided central line extends to the level of the right atrium. Correlate with desired level of positioning. IMPRESSION 1. Improvement in bibasilar tree-in-bud opacities most characteristic of an inflammatory or infectious process. See discussion above regarding followup imaging of the chest based on risk factors for malignancy in this patient. 2. Lungs are otherwise clear. No pleural effusion. 3. Cardiomegaly. 4. Upper abdomen demonstrates surgical absence of the gallbladder. 5. The right-sided central line extends to the right atrial level. Correlate with desired level of positioning. Dictated by... Luis Carlos Carrasco M.D. THIS IS AN ELECTRONICALLY VERIFIED REPORT Luis Carlos Carrasco M.D. at 11/28/2016 10:02 PM Oc TD: 11/28/2016 09:00 JOB #: [id number] MEDICAL IMAGING REPORT Page 1 of 1 COPY
--- NOTE | ~2016-11-24 | CT4 ---
[facility] A Service of [facility] RADIOLOGY TEXT RESULTS PATIENT: CELSO VALDEZ LOCATION: [facility] 566-01 : [birth year] UNIT #: [id number] AGE: [address]: Naila Luque MD SEX: F ORDER DR: [id number] [facility] [address] [facility]. [place], [place] [address] [id number] MR#: [id number] Acc #: [id number] NAME: CELSO VALDEZ : 1970 SEX: F STUDY DATE/TIME: 11/24/2016 14:15 UNIT: [facility] ROOM: STUDY DESCRIPTION: CT Abd and Pelv Wo Cont Attending Physician: Sharan Mendieta M.D. Ordering Physician: Sharan Mendieta M.D. Primary Care Physician: No Primary Care Physician MEDICAL IMAGING REPORT This report is preliminary unless electronic signature is present EXAM CT abdomen and pelvis, without contrast media. HISTORY Nausea, vomiting, abdominal pain for 3 days. TECHNIQUE Transaxial imaging of the abdomen and pelvis was performed without contrast media. This CT exam was performed with one or more of the following radiation dose reduction techniques: automatic exposure control, adjustment of mA and/or kV according to patient size, and iterative reconstruction. FINDINGS Studies through the lung bases show patchy bibasilar infiltrates. Liver and spleen are normal. The gallbladder is surgically absent. The pancreas is normal. The adrenal glands are normal. There is some mild perinephric stranding. The kidneys are otherwise normal. No dilated or thickened loops of bowel are identified. No dilated or thickened loops of bowel are seen. The appendix is not clearly identified. The uterus is surgically absent. There are no pelvic masses or fluid collections. CONCLUSION 1. Patchy bibasilar pulmonary infiltrates. 2. Status post cholecystectomy and hysterectomy. 3. Mild perinephric stranding, probably not significant. Dictated by... Toan Solano M.D. THIS IS AN ELECTRONICALLY VERIFIED REPORT [facility] A Service of [facility] RADIOLOGY TEXT RESULTS PATIENT: CELSO VALDEZ LOCATION: [facility] 566-01 : [birth year] UNIT #: [id number] AGE: [address]: Naila Luque MD SEX: F ORDER DR: Toan Solano M.D. at 11/27/2016 2:44 PM GOLDIE/coco TD: 11/24/2016 16:08 JOB #: [id number] MEDICAL IMAGING REPORT Page 1 of 1 COPY
--- NOTE | ~2016-11-24 | CO ---
Unit #: [id number] #: [id number] Patient: CELSO VALDEZ [id number] [address] [address] [id number] I MR#: [id number] NAME: CELSO VALDEZ ROOM: 566 Age: 46 Sex: F Admission Date: 11/24/2016 : 1970 Attending Physician: Naila Luque M.D. Consultation Date: 11/25/2016 CONSULTATION REPORT REASON FOR CONSULTATION Sleep apnea and chronic shortness of breath HISTORY OF PRESENT ILLNESS This 46-year-old morbidly obese female, who states she was the patient of Dr. Orr. She saw him for sleep apnea. She did not like her CPAP machine, did not wear it, so they took it away from her, but she states she is willing to have treatment now. She denies any history of tobacco abuse or secondhand smoke exposure. She denies asthma. She states that somebody told her once she has COPD, but she is not sure why or from what, but she is no oxygen at home. No inhalers. She does have heartburn. She has diabetes that is uncontrolled with chronic right leg wound. She came in with nausea, vomiting, and diarrhea, which has since resolved. She has shortness of breath that she states this is chronic, but she states she was told she has pneumonia now, even though she has no fever, no chills, and no cough. This was based on that she has had a CT scan of the abdomen was done, which is not available for my viewing at this moment. PAST MEDICAL HISTORY 1. Chronic kidney disease, on hemodialysis. 2. Chronic anemia. 3. Morbid obesity. 4. Obstructive sleep apnea with noncompliance to treatment. 5. Depression. 6. Right lower extremity necrotizing fasciitis. PAST SURGICAL HISTORY 1. Right third toe metatarsal joint amputation. 2. Multiple debridements of the lower extremities. 3. Hysterectomy. 4. Cholecystectomy. ALLERGIES None. MEDICATIONS Insulin, Tylenol, Phenergan, Norvasc, Pristiq, Aricept, metoprolol, Zosyn, Zyvox, Synthroid, gabapentin, Singulair, Lipitor. Calcium. SOCIAL HISTORY The patient denies tobacco, alcohol, or illicit drug use. FAMILY HISTORY Coronary artery disease and diabetes. Unit #: [id number] #: [id number] Patient: CELSO VALDEZ REVIEW OF SYSTEMS Complete review of systems was performed, pertinent positives include chief complaint. PHYSICAL EXAMINATION VITAL SIGNS: Stable. She is afebrile. GENERAL: The patient is alert and oriented in no acute distress. HEENT: Eyes; PERRLA. Extraocular movements are intact. Sclerae are clear. Nose is patent and symmetrical without rhinitis. Throat without erythema or exudate. Tongue size normal. NECK: Without JVD, carotid bruit, or thyromegaly. LYMPHATICS: Lymph nodes without submandibular, anterior cervical, or supraclavicular adenopathy. HEART: Regular rate and rhythm without murmur appreciated. No thrills palpated. LUNGS: Diminished. There is no egophony. There is dullness to percussion bilaterally. ABDOMEN: Morbidly obese. Unable to appreciate a hepatosplenomegaly. EXTREMITIES: Right lower extremity is wrapped. No cyanosis or edema. DIAGNOSTIC STUDIES IMAGING STUDIES: Chest x-ray, none. CT of the abdomen unable to review at this time. LABORATORY RESULTS: Reviewed by myself. IMPRESSION 1. Resolved nausea, vomiting, and diarrhea. 2. History of obstructive sleep apnea with noncompliance to noninvasive. 3. Chronic shortness of breath, most likely multifactorial secondary to morbid obesity, deconditioned status, renal failure, atelectasis, cannot rule out obesity hypoventilation at this time. 4. Diabetes. 5. Chronic kidney disease. 6. Hypothyroidism. 7. Hypertension. RECOMMENDATIONS 1. Weight loss. 2. We will follow up outpatient for sleep. 3. Check room air, ABGs now to evaluate for hypoxemia and/or hypercarbia. 4. Incentive spirometry. 5. Do not see any reason for antibiotics from a lung standpoint at this time. Further recommendations to follow after the images reviewed and ABGs. Dictated by... Farhat Barillas/donte TD: 11/26/2016 00:19 JOB #: [id number] Unit #: [id number] #: [id number] Patient: CELSO VALDEZ CONSULTATION REPORT Page 1 of 1 X Eli Albarran CONSULTATION REPORT
--- NOTE | ~2016-11-24 | NM19 ---
[facility] A Service of [facility] RADIOLOGY TEXT RESULTS PATIENT: CELSO VALDEZ LOCATION: [facility] 566-01 : [birth year] UNIT #: [id number] AGE: [address]: Naila Luque MD SEX: F ORDER DR: [id number] [facility] [address] [facility]. [place], [place] [address] [id number] I MR#: [id number] Acc #: [id number] NAME: CELSO VALDEZ : 1970 SEX: F STUDY DATE/TIME: 11/27/2016 10:05 UNIT: [facility] ROOM: [facility] STUDY DESCRIPTION: NM Gastric Emptying Study Attending Physician: Naila Luque M.D. Ordering Physician: Sirena Delgado M.D. Primary Care Physician: No Primary Care Physician MEDICAL IMAGING REPORT This report is preliminary unless electronic signature is present EXAM Gastric emptying scan 11/27/2016 HISTORY Nausea and vomiting, dry heaving and gagging, periumbilical abdominal pain. Patient feels food stuck in chest, symptoms began October 2016, diabetes. FINDINGS The patient ingested 460 microcuries of technetium 99m tagged sulfur colloid in eggs. Images of the upper abdomen were obtained for 150 minutes. The gastric half-emptying time was never reached. IMPRESSION Delayed gastric emptying. The gastric half-emptying time was never reached. Dictated by... Fredy Ibrahim M.D. THIS IS AN ELECTRONICALLY VERIFIED REPORT Fredy Ibrahim M.D. at 11/28/2016 10:32 AM Deborah TD: 11/27/2016 15:57 JOB #: [id number] MEDICAL IMAGING REPORT Page 1 of 1 COPY
--- NOTE | ~2016-11-24 | CO ---
Unit #: [id number] #: [id number] Patient: CELSO VALDEZ [id number] [address] [place], [place] [address] [id number] I MR#: [id number] NAME: CELSO VALDEZ ROOM: 566 Age: 46 Sex: F Admission Date: 11/24/2016 : 1970 Attending Physician: Naila Luque M.D. Consultation Date: 11/28/2016 CONSULTATION REPORT REASON FOR CONSULTATION AV fistula creation. HISTORY OF PRESENT ILLNESS This is a 46-year-old female with a history of end-stage renal disease, who currently goes to dialysis on Tuesdays, , Saturdays and uses a right chest tunnel catheter. She has a history of having right lower extremity necrotizing fasciitis for which Surgery is continuing to follow her for treatment. She has a history of having a recent hospitalization of significant sepsis with hypotension. She is now admitted to [facility] after experiencing several episodes of nausea and vomiting. We have been asked to see Ms. Valdez for fistula creation. PAST MEDICAL HISTORY 1. End-stage renal disease. 2. Peripheral artery disease. 3. History of toe amputations. 4. Obesity. 5. Obstructive sleep apnea. 6. Chronic obstructive pulmonary disease. 7. Hypertension. 8. Diabetes. ALLERGIES Hydrocodone, sulfamethoxazole, trimethoprim, adhesive tape, magnesium, ondansetron, vancomycin, Levaquin. MEDICATIONS Vascepa 1 g p.o. daily, calcium tablet one tab daily, vitamin B12 500 mcg p.o. daily, topiramate 25 mg p.o. daily, Protonix 40 mg p.o. daily, hydralazine 25 mg p.o. b.i.d., calcium acetate 667 mg p.o. daily, atorvastatin 40 mg p.o. daily, gabapentin 300 mg p.o. daily, NovoLog 28 units subcutaneous t.i.d., Lantus 38 units subcutaneous daily, torsemide 100 mg p.o. daily, Acidophilus one cap p.o. daily, Claritin 10 mg p.o. daily, Synthroid 0.05 mg p.o. daily, desvenlafaxine 50 mg p.o. daily, Singulair 10 mg p.o. daily. SOCIAL HISTORY The patient resides at home with her daughter. She denies smoking, alcohol, or drug use. REVIEW OF SYSTEMS Unit #: [id number] #: [id number] Patient: CELSO VALDEZ CONSTITUTIONAL: Negative. EYES: Negative. EARS, NOSE, MOUTH, AND THROAT: Negative. RESPIRATORY: Negative. CARDIOVASCULAR: Negative. GASTROINTESTINAL: Significant for nausea and significant for vomiting. GENITOURINARY: Negative. HEME/LYMPH: Negative. ENDOCRINE: Diabetes, on insulin. MUSCULOSKELETAL: Negative. INTEGUMENTARY: Right lower extremity wounds, currently being treated with bandages. NEUROLOGIC: Negative. PSYCH: Negative. PHYSICAL EXAMINATION VITAL SIGNS: Temperature 99.4, heart rate 85, respiratory rate 20, blood pressure 131/72. GENERAL: This is an obese female, in no acute distress. Appropriate affect. Somewhat drowsy during the examination. HEENT: Pupils equal, round, and reactive to light. NECK: Supple. Nontender. No carotid bruits noted. CARDIAC: Regular rate and rhythm. No murmurs noted. LUNGS: Clear to auscultation. Nonlabored. ABDOMEN: Large pendulous abdomen. Positive bowel sounds. Soft, nontender. No distention. MUSCULOSKELETAL: Moves all extremities with full range of motion. EXTREMITIES: Upper extremities, no edema noted. Lower extremities, no edema noted. VASCULAR: Palpable radial pulses bilaterally. Femoral pulses difficult to palpate due to body habitus. INTEGUMENTARY: Skin is warm and dry. The patient has dry bandages to her right lower extremity. She has a bandage to the bottom of right foot. . NEUROLOGIC: Cranial nerves II through XII grossly intact. Normal strength and sensation bilaterally. PSYCHIATRIC: Oriented to person, place, and time. DIAGNOSTIC STUDIES IMAGING STUDIES: Vein mapping is pending. LABORATORY RESULTS: Sodium 134, potassium 3.7, chloride 103, CO2 23, BUN 8, creatinine 2.1, glucose 326. Hemoglobin 8.5, hematocrit 25.5, WBC 6.8, platelets 208. ASSESSMENT AND PLAN 1. End-stage renal disease, need for fistula creation. 2. Vein mapping. 3. Left arm PICC line in place. 4. Right arm with multiple antecubital . 5. The patient is right-handed. PLAN We will review the vein mapping once completed and arrange for surgery. This can be done on outpatient basis. Thank you for allowing us to participate in the care of this patient. Unit #: [id number] #: [id number] Patient: CELSO VALDEZ Dictated by.Darrian. Perez Warren APRN for Clarence Ahuja/donte TD: 11/29/2016 03:26 JOB #: [id number] CONSULTATION REPORT Page 1 of 1 X X CONSULTATION REPORT
--- NOTE | ~2016-11-24 | US146 ---
[facility] A Service of [facility] & [facility] RADIOLOGY TEXT RESULTS PATIENT: CELSO VALDEZ LOCATION: [facility] 566-01 : [birth year] UNIT #: [id number] AGE: [address]: Naila Luque MD SEX: F ORDER DR: [id number] [facility] [address] [place], [place] [address] [id number] MR#: [id number] #: [id number] NAME: CELSO VALDEZ : 1970 SEX: F STUDY DATE/TIME: 11/28/2016 19:14 UNIT: [facility] ROOM: [facility] STUDY DESCRIPTION: US Vein Map Hemodial Access Attending Physician: Naila Luque M.D. Ordering Physician: Kael Momin Jr., M.D. Primary Care Physician: Primary Care Physician No MEDICAL IMAGING REPORT This report is preliminary unless electronic signature is present EXAM Upper extremity vein mapping for hemodialysis access 11/28/2016 HISTORY: Dialysis fistula. Real-time ultrasonography of the upper extremity superficial veins performed. Taylor-scale color Doppler, Doppler pulse-wave interrogation utilized. Note is made of nearly occlusive thrombus in the right cephalic vein in the distal upper arm and at elbow level. The more proximal right cephalic vein is patent and the right cephalic vein in the forearm is patent. Right upper extremity cephalic vein measurements as follows: Proximal upper arm 1.8 mm, mid upper arm 2.4 mm, distal upper arm (thrombosed) 5.4 mm, elbow level (thrombosed) 3.9 mm, proximal forearm 3.5 mm, mid forearm 2.2 mm, distal forearm 2.1 mm. Right upper extremity basilic vein diameters as follows: Proximal upper arm 5.2 mm, mid upper arm 3.6 mm, distal upper arm 3.5 mm, elbow level 2.7 mm, proximal forearm 2.2 mm, midforearm 1.3 mm, distal forearm 1.2 mm. The left cephalic vein diameters are as follows: Proximal upper arm 3.9 mm, mid upper arm 3.1 mm, distal left upper arm cephalic vein obscured by overlying bandaging. Left cephalic vein at elbow 2.2 mm diameter, proximal forearm 2.6 mm, midforearm 3.1 mm, distal forearm 1.7 mm. Left basilic vein measurements as follows: Proximal upper arm 4.0 mm, mid upper arm 2.7 mm, distal upper arm 2.2 mm, elbow level 2.4 mm, proximal forearm 1.2 mm, mid forearm 0.9 mm, distal forearm 1.3 mm. IMPRESSION 1. Please see the vein diameter measurements in body of report above. [facility]. [facility] A Service of [facility] RADIOLOGY TEXT RESULTS PATIENT: CELSO VALDEZ LOCATION: [facility] 566-01 : [birth year] UNIT #: [id number] AGE: [address]: Naila Luque MD SEX: F ORDER DR: 2. Acute appearing nearly occlusive superficial venous thrombosis in the right cephalic vein in the distal upper arm and at elbow level. The more proximal and more distal portions of the right cephalic vein appear patent. 3. No other areas of superficial venous thrombosis are seen. 4. The distal left cephalic vein in the upper arm could not be visualized secondary to overlying bandaging material. Dictated by... Toan Whitmore M.D. THIS IS AN ELECTRONICALLY VERIFIED REPORT Toan Whitmore M.D. at 11/30/2016 5:56 PM Melina TD: 11/29/2016 11:01 JOB #: [id number] MEDICAL IMAGING REPORT Page 1 of 1 COPY
--- NOTE | ~2016-11-24 | HP ---
Unit #: [id number] #: [id number] Patient: MARGRET VALDEZ [id number] [address] [address] [id number] I MR#: [id number] NAME: MARGRET VALDEZ ROOM: 566 Age: 46 Sex: F Admission Date: 11/24/2016 : 1970 Attending Physician: Naila Luque M.D. HISTORY AND PHYSICAL ADMISSION DIAGNOSES 1. Pneumonia. 2. Intractable nausea and vomiting. 3. Diabetes. 4. Acute renal failure on chronic kidney disease requiring hemodialysis. 5. History of recent necrotizing fasciitis. 6. History of recent bacteremia and sepsis. 7. Chronic obstructive pulmonary disease. 8. Morbid obesity. 9. Anemia of chronic disease. 10. Depression. 11. Dyslipidemia. 12. Hypertension. HISTORY OF PRESENT ILLNESS Ms. Margret Valdez is a 46-year-old morbidly obese female well known to our service secondary to multiple admissions in the past. Most recently, she was discharged from our service on November 05, 2016. She comes in with the complaints of intractable nausea and vomiting, along with some abdominal discomfort. Initial evaluation in the emergency room with a CT abdomen and pelvis revealed bilateral basilar infiltrates compatible with pneumonia. Therefore, patient is being admitted. Initial evaluation also revealed worsening kidney function. She is currently on dialysis. Nephrology service is following. She denies any active chest pain, shortness of air, dyspnea, fever, and chills. She complains of nausea and vomiting but no diarrhea. There is some diffuse abdominal discomfort. Per patient, it has been going on for the last couple of days. No syncopal episodes and no presyncope events. So a 12-point review of systems on this patient basically is negative except as above. PAST MEDICAL HISTORY 1. Chronic obstructive pulmonary disease. 2. Diabetes. 3. Necrotizing fasciitis. 4. Recent sepsis and bacteremia. 5. Chronic kidney disease recently requiring dialysis. 6. Anemia of chronic disease. 7. Depression and anxiety. 8. Dyslipidemia. PAST SURGICAL HISTORY 1. Right third toe metatarsophalangeal joint disarticulation. 2. Hardware removal of intramedullary screw from the third toe. 3. Debridement of abscess. Unit #: [id number] #: [id number] Patient: MARGRET VALDEZ 4. Hysterectomy. 5. Cholecystectomy. 6. I and D for fascitis. HOME MEDICATIONS 1. Vascepa. 2. Calcium with vitamin D. 3. B12. 4. Trokendi XR. 5. Protonix. 6. Hydralazine. 7. Calcium acetate. 8. Lipitor. 9. Gabapentin. 10. NovoLog. 11. Lantus. 12. Torsemide. 13. Lactobacillus. 14. Claritin. 15. Synthroid. 16. Desvenlafaxine. 17. Singulair. ALLERGIES HYDROCODONE, TETRACYCLINE, BACTRIM, ADHESIVE TAPE, ZOFRAN, VANCOMYCIN, LEVAQUIN. SOCIAL HISTORY No history of current tobacco, alcohol, or illicit drugs. FAMILY HISTORY Unremarkable. PHYSICAL EXAMINATION GENERAL: Patient is a 46-year-old female in no acute distress. VITAL SIGNS: Blood pressure 180/89, heart rate 87, respirations 16, and temperature 97.6. HEENT: Head is atraumatic. Pupils equal, round, and reactive to light and accommodation. Extraocular muscles intact. Oropharynx clear. NECK: Supple. No mass, no JVD, and no bruits. CHEST: Diminished bilaterally. CARDIOVASCULAR: S1 and S2. No murmurs. ABDOMEN: Soft, nontender, and nondistended. LOWER EXTREMITIES: With some trace edema. DIAGNOSTIC STUDIES LABORATORY: Chemistry significant for BUN and creatinine of 15 and 3.1, potassium 3, and blood glucose 122. White count 7 and hemoglobin and hematocrit 7.4 and 22.7. IMAGING: CT abdomen and pelvis as above. ASSESSMENT AND PLAN 1. Pneumonia, status post evaluation per Pulmonary. Continue antibiotics per Pulmonary. Bronchodilators p.r.n. 2. Intractable nausea and vomiting. CT abdomen and pelvis otherwise unremarkable. Continue symptomatic management and supportive care. Consider Gastroenterology evaluation. Question gastroenteritis. Unit #: [id number] #: [id number] Patient: MARGRET VALDEZ 3. Acute kidney injury on chronic kidney disease requiring hemodialysis. Continue per Nephrology. 4. Chronic obstructive pulmonary disease, at baseline. 5. History of necrotizing fasciitis, status incision and debridement. 6. History of bacteremia. 7. Insulin-dependent diabetes as per home regime. 8. History of depression. Continue home medications. 9. Dyslipidemia. Continue home medications. 10. Hypertension. Will increase hydralazine to 50 mg b.i.d. 11. Gastrointestinal and deep venous thrombosis prophylaxis with proton pump inhibitor, TEDs, and SCDs. Dictated by Clarence Fischer/cory TD: 11/26/2016 14:02 JOB #: [id number] HISTORY AND PHYSICAL Page 1 of 1 X Brooks Watson MD HISTORY AND PHYSICAL
--- NOTE | ~2016-11-24 | OR ---
Unit #: [id number] #: [id number] Patient: CELSO VALDEZ [id number] [address] [address] [id number] I MR#: [id number] NAME: CELSO VALDEZ ROOM: 566 Date of Procedure: 11/28/2016 Admission Date: 11/24/2016 Surgeon: Jairo Glover M.D. : 1970 Attending Physician: Naila Moore M.D. OPERATIVE REPORT JOB NOTE: CC : DR. MOORE PROCEDURE PERFORMED Esophagogastroduodenoscopy with biopsy. INDICATIONS FOR PROCEDURE The patient with persistent severe nausea, vomiting, epigastric discomfort, also with anemia, undergoing evaluation with upper endoscopy. MEDICATIONS Monitored anesthesia. POSTOPERATIVE FINDINGS 1. Large food bezoar in the stomach, filling the entire stomach consistent with severe gastroparesis. 2. A 5 to 6 mm antral nodule, biopsy was taken. 3. Normal duodenum and distal duodenum. 4. Small hiatal hernia along with nonobstructing acquired esophageal ring. PLAN We will give Reglan for 24 to 48 hours. We will keep him on clears until the symptoms clear. See inpatient orders. DESCRIPTION OF PROCEDURE The patient was explained of the procedure, risks, and benefits along with risks and benefits of anesthesia. She was brought to the endoscopy room. Propofol anesthesia was given. Bite-block was placed. The scope was passed down the mouth and esophagus, stomach, duodenum, and distal duodenum. Findings as described. Biopsies were taken. Gently, the scope was pulled out. She tolerated it well. Dictated by... Clarence Olson/donte TD: 11/28/2016 22:52 JOB #: [id number] Unit #: [id number] #: [id number] Patient: CELSO VALDEZ OPERATIVE REPORT Page 1 of 1 X Jairo Glover MD X PROCEDURE OPERATIVE NOTE
[~2016-11-24 12:39] MED LIST changes: +ACIDOPHILUS LAC1 CAP PO; +ALB/IPRATROPIUM/1 E1 INH; +ANTI-DIARRHEAL2 M1 PO; +ARANESP60 MCG/ML INJ; +DAKIN'S MODIF1000 ML EXT; +METOPROLOL TAR100 MG PO; +MORPHINE SU4 MG/1 ML IV; +NORVASC10 MG PO; +NOVOLOG100 U/ML; +PHENERGAN12.5 MG/0. IV; +PHOSLO667 MG PO; +SANTYL15 G1 TOP; +TYL325 PO; +VASCEPA1 GM PO; +ZOSYN INJ; +ZYVOX600 MG IV; +[UNRECOGNIZED DRUG - OTHER] PO
[2016-11-24 13:29] LABS: ALBUMIN SERUM 2.6 g/dL (3.5-5.0); BILIRUBIN, DIRECT 0.1 mg/dL (0.0-0.2); BILIRUBIN,INDIRECT 0.4 mg/dL (0.0-0.9); BILIRUBIN,TOTAL 0.5 mg/dL (0.2-2.0); CALCIUM SERUM 7.8 mg/dL (8.4-10.2); CREATININE SERUM 2.6 mg/dL (0.6-1.4); GLOM FILT RATE Estimated 21.1 mL/min (>60); POTASSIUM 3.2 mmol/L (3.5-5.1); PROTEIN TOTAL SERUM 7.6 g/dL (6.0-8.3)
[2016-11-24 13:36] LABS: BASOPHIL% 0.5 % (0-2.5); EOSINOPHIL% 0.7 % (0.0-7.0); HEMATOCRIT 25.5 % (35.0-45.0); HEMOGLOBIN 8.3 gm/dL (12.0-16.0); LYMPHOCYTE# 1.7 X10e3 (1.0-3.5); LYMPHOCYTE% 24.9 % (17.0-45.0); MEAN CELL VOLUME 87.1 FL (83-96); MEAN CORPUSCULAR HEMOGLOBIN 28.3 PG (28-34); MEAN CORPUSCULAR HGB CONC 32.5 g/dL (30-36); MEAN PLATELET VOLUME 7.3 FL (6.5-11.5); MONOCYTE# 0.5 X10e3 (0-1.0); MONOCYTE% 8.1 % (3.0-12.0); NEUTROPHIL# 4.4 X10e3 (1.5-7.1); NEUTROPHIL% 65.8 % (40-75); PLATELET COUNT 238 X10e3 (140-420); RED BLOOD COUNT 2.93 X10e (3.90-5.30); RED CELL DISTRIBUTION WIDTH 15.7 % (11.0-15.5); WHITE BLOOD COUNT 6.7 X10e3 (4.0-10.5)
[2016-11-24 13:37] LABS: DIFF IND NO
[2016-11-24 13:43] LABS: URINE SOURCE CLEAN CATCH
[2016-11-24] MEDS ORDERED: CALCIUM 600 +1 EAC2 PO (13:51)
[2016-11-24] MEDS ORDERED: B-12500 MCG PO (13:52)
[2016-11-24] MEDS ORDERED: TROKENDI XR25 MG PO (13:59)
[2016-11-24] MEDS ORDERED: APRESOLINE PO (13:59)
[2016-11-24] MEDS ORDERED: SYNTHROID75 MCG PO (14:02)
[2016-11-24 14:04] LABS: CULTURE INDICATED? YES; U HYALINE CASTS AUWI 0-2 /[LPF]; URINE APPEARANCE CLEAR; URINE BACTERIA AUWI 1+ (NEGATIVE); URINE BILIRUBIN NEG (NEG); URINE BLOOD 1+ (NEG); URINE COLOR YELLOW; URINE GLUCOSE 250 MG/DL (NEG); URINE KETONE NEG (NEG); URINE LEUKOCYTE ESTERASE TRACE (NEG); URINE NITRATE NEG (NEG); URINE PROTEIN 1+ (NEG); URINE SPECIFIC GRAVITY 1.017 (1.003-1.035); URINE SQUAMOUS EPITHELIAL CELL FEW /[HPF]; URINE UROBILINOGEN 0.2 MG/DL (NEG)
[2016-11-24] MEDS ORDERED: NOVOLOG100 U/M2 SUBQ (14:04)
[2016-11-24] MEDS ORDERED: TORSEMIDE100 M1 PO (14:05)
[2016-11-24] MEDS ORDERED: LANTUS100 U/ML SUBQ (14:05)
[2016-11-25 06:25] LABS: HEMATOCRIT 22.7 % (35.0-45.0); HEMOGLOBIN 7.4 gm/dL (12.0-16.0); MEAN CELL VOLUME 88.3 FL (83-96); MEAN CORPUSCULAR HEMOGLOBIN 28.9 PG (28-34); MEAN CORPUSCULAR HGB CONC 32.7 g/dL (30-36); MEAN PLATELET VOLUME 7.4 FL (6.5-11.5); RED BLOOD COUNT 2.57 X10e (3.90-5.30); RED CELL DISTRIBUTION WIDTH 15.8 % (11.0-15.5)
[2016-11-25 07:03] LABS: BUN/CREATININE RATIO 4.83; CALCIUM SERUM 7.4 mg/dL (8.4-10.2); CREATININE SERUM 3.1 mg/dL (0.6-1.4); GLOM FILT RATE Estimated 17.1 mL/min (>60)
[2016-11-25 15:32] LABS: ARTERIAL BLOOD GAS ART SITE LEFT BRACHIAL; ARTERIAL BLOOD GAS DELIVERY RA; ARTERIAL DRAW? YES
[2016-11-25 16:42] LABS: MAGNESIUM 1.4 mg/dL (1.6-3.0); POTASSIUM 3.8 mmol/L (3.5-5.1)
[2016-11-26 04:51] LABS: HEMATOCRIT 21.2 % (35.0-45.0); MEAN CELL VOLUME 88.3 FL (83-96); MEAN CORPUSCULAR HEMOGLOBIN 28.8 PG (28-34); MEAN CORPUSCULAR HGB CONC 32.6 g/dL (30-36); MEAN PLATELET VOLUME 7.7 FL (6.5-11.5); RED BLOOD COUNT 2.41 X10e (3.90-5.30); RED CELL DISTRIBUTION WIDTH 15.7 % (11.0-15.5); WHITE BLOOD COUNT 5.9 X10e3 (4.0-10.5)
[2016-11-26 04:54] LABS: HEMOGLOBIN 6.9 gm/dL (12.0-16.0)
[2016-11-26 05:14] LABS: CALCIUM SERUM 7.1 mg/dL (8.4-10.2); CREATININE SERUM 3.8 mg/dL (0.6-1.4); GLOM FILT RATE Estimated 13.3 mL/min (>60); MAGNESIUM 1.4 mg/dL (1.6-3.0); PHOSPHOROUS 4.3 mg/dL (2.5-4.6); POTASSIUM 3.5 mmol/L (3.5-5.1)
[2016-11-27 15:46] LABS: HEMATOCRIT 29.2 % (35.0-45.0); MEAN CORPUSCULAR HEMOGLOBIN 27.6 PG (28-34); MEAN CORPUSCULAR HGB CONC 32.5 g/dL (30-36); MEAN PLATELET VOLUME 7.8 FL (6.5-11.5); RED BLOOD COUNT 3.43 X10e (3.90-5.30); RED CELL DISTRIBUTION WIDTH 17.2 % (11.0-15.5); WHITE BLOOD COUNT 8.1 X10e3 (4.0-10.5)
[2016-11-27 15:55] LABS: HEMOGLOBIN 9.5 gm/dL (12.0-16.0); MEAN CELL VOLUME 85.1 FL (83-96)
[2016-11-27 16:07] LABS: ALBUMIN SERUM 2.3 g/dL (3.5-5.0); BILIRUBIN,TOTAL 0.3 mg/dL (0.2-2.0); BUN/CREATININE RATIO 5.11; CALCIUM SERUM 7.6 mg/dL (8.4-10.2); CREATININE SERUM 4.3 mg/dL (0.6-1.4); GLOM FILT RATE Estimated 11.5 mL/min (>60); MAGNESIUM 1.4 mg/dL (1.6-3.0); POTASSIUM 3.5 mmol/L (3.5-5.1); PROTEIN TOTAL SERUM 7.7 g/dL (6.0-8.3)
[2016-11-28 06:33] LABS: HEMATOCRIT 25.5 % (35.0-45.0); HEMOGLOBIN 8.5 gm/dL (12.0-16.0); MEAN CELL VOLUME 84.5 FL (83-96); MEAN CORPUSCULAR HEMOGLOBIN 28.1 PG (28-34); MEAN CORPUSCULAR HGB CONC 33.3 g/dL (30-36); MEAN PLATELET VOLUME 7.8 FL (6.5-11.5); RED BLOOD COUNT 3.01 X10e (3.90-5.30); RED CELL DISTRIBUTION WIDTH 17.2 % (11.0-15.5); WHITE BLOOD COUNT 6.8 X10e3 (4.0-10.5)
[2016-11-28 07:18] LABS: FOLATE (FOLIC ACID) 7.4 ng/mL (>5.8)
[2016-11-28 07:34] LABS: BILIRUBIN,TOTAL 0.2 mg/dL (0.2-2.0); BUN/CREATININE RATIO 3.8; CALCIUM SERUM 7.2 mg/dL (8.4-10.2); CREATININE SERUM 2.1 mg/dL (0.6-1.4); GLOM FILT RATE Estimated 27.3 mL/min (>60); POTASSIUM 3.7 mmol/L (3.5-5.1); PROTEIN TOTAL SERUM 6.2 g/dL (6.0-8.3)
[2016-11-28 10:02] LABS: ARTERIAL BLOOD GAS MET HB 0.9 %sat (0.0-2.0)
[2016-11-29 05:41] LABS: HEMATOCRIT 25.8 % (35.0-45.0); HEMOGLOBIN 8.4 gm/dL (12.0-16.0); MEAN CELL VOLUME 85.9 FL (83-96); MEAN CORPUSCULAR HEMOGLOBIN 27.9 PG (28-34); MEAN CORPUSCULAR HGB CONC 32.5 g/dL (30-36); MEAN PLATELET VOLUME 7.7 FL (6.5-11.5); WHITE BLOOD COUNT 6.7 X10e3 (4.0-10.5)
[2016-11-29 06:40] LABS: ALBUMIN SERUM 2.1 g/dL (3.5-5.0); BILIRUBIN,TOTAL 0.3 mg/dL (0.2-2.0); BUN/CREATININE RATIO 4.37; CALCIUM SERUM 7.2 mg/dL (8.4-10.2); CREATININE SERUM 3.2 mg/dL (0.6-1.4); GLOM FILT RATE Estimated 16.4 mL/min (>60); POTASSIUM 3.7 mmol/L (3.5-5.1); PROTEIN TOTAL SERUM 6.3 g/dL (6.0-8.3)
[2016-11-29] MEDS ORDERED: ISORDIL PO (13:42)
[2016-11-29] MEDS ORDERED: LEVEMIR100 UNITS/ SUBQ (13:43)
[2016-11-29] MEDS ORDERED: COREG12.5 MG PO (13:44)
[2016-11-29] MEDS ORDERED: LASIX80 MG PO (13:45)
[2016-11-29] MEDS ORDERED: ACETAMINOPHEN650 M4 PO (13:47)
[2016-11-29] MEDS ORDERED: MAGNESIUM400 M1 PO (13:48)
[2016-11-29] MEDS ORDERED: ZYVOX600 MG PO (13:49)
[2016-11-29] MEDS ORDERED: LANTUS100 UNITS/ INJ (14:09)
[2017-02-05] MEDS ORDERED: TRESIBA FL100 UNIT/1 SUBQ (08:21)
[2017-02-05] MEDS ORDERED: TROKENDI XR25 MG PO (08:23)
[2017-02-05] MEDS ORDERED: TORSEMIDE100 M1 PO (08:24)
[2017-02-05] MEDS ORDERED: VASCEPA1 GM PO (08:28)
[2017-02-05] MEDS ORDERED: REGLAN PO (13:41)
[2017-02-05] MEDS ORDERED: PROTONIX PO (13:59)
[2017-02-05] MEDS ORDERED: ACIDOPHILUS1 EAC3 PO (14:00)
[2017-02-05] MEDS ORDERED: LIPITOR PO (14:00)
[2017-02-05] MEDS ORDERED: CALCIUM ACETAT667 M1 PO (14:00)
[2017-02-05] MEDS ORDERED: GABAPENTIN300 MG PO (14:00)
[2017-02-05] MEDS ORDERED: CLARITIN10 M2 PO (14:01)
[2017-02-05] MEDS ORDERED: SINGULAIR PO (14:03)
[2017-02-05] MEDS ORDERED: DESVENLAFAXINE50 M1 PO (14:03)
[2017-02-05] MEDS ORDERED: NOVOLOG100 U/ML INJ (14:07)
== END 2016-11-29 17:11 | disposition home or self-care (01) | DRG 683 ==
LOC: CED 12:39 → CEDOF 15:55 → C5C 18:50
PROVIDERS: Emergency Medicine; Hospitalist; Internal Medicine; Internal Medicine Nephrology; Physician Assistant Medical
PROC: 05H633Z Insertion of Infusion Device into Left Subclavian Vein, Percutaneous Approach (ICD-10-PCS; 2016-11-25)
PROC: B547ZZA Ultrasonography of Left Subclavian Vein, Guidance (ICD-10-PCS; 2016-11-25)
PROC: 30233N1 Transfusion of Nonautologous Red Blood Cells into Peripheral Vein, Percutaneous Approach (ICD-10-PCS; 2016-11-27)
PROC: 5A1D00Z (ICD-10-PCS; 2016-11-27)
PROC: 0DB68ZX Excision of Stomach, Via Natural or Artificial Opening Endoscopic, Diagnostic (ICD-10-PCS; principal; 2016-11-28 07:45)
DX: N17.9 Acute kidney failure, unspecified (principal); J98.11 Atelectasis; E11.22 Type 2 diabetes mellitus with diabetic chronic kidney disease; I12.0 Hypertensive chronic kidney disease with stage 5 chronic kidney disease or end stage renal disease; K31.84 Gastroparesis; T18.2XXA Foreign body in stomach, initial encounter; E11.43 Type 2 diabetes mellitus with diabetic autonomic (poly)neuropathy; Z68.41 Body mass index [BMI] 40.0-44.9, adult; N39.0 Urinary tract infection, site not specified; E83.42 Hypomagnesemia; R11.2 Nausea with vomiting, unspecified; J44.9 Chronic obstructive pulmonary disease, unspecified; E66.01 Morbid (severe) obesity due to excess calories; D63.1 Anemia in chronic kidney disease; F32.9 Major depressive disorder, single episode, unspecified; E78.5 Hyperlipidemia, unspecified; Z90.49 Acquired absence of other specified parts of digestive tract; Z90.710 Acquired absence of both cervix and uterus; Z79.4 Long term (current) use of insulin; Z88.1 Allergy status to other antibiotic agents; Z91.19 Patient's noncompliance with other medical treatment and regimen; G47.33 Obstructive sleep apnea (adult) (pediatric); Z89.421 Acquired absence of other right toe(s); E87.6 Hypokalemia; R19.7 Diarrhea, unspecified; N18.6 End stage renal disease; Z99.2 Dependence on renal dialysis; I73.9 Peripheral vascular disease, unspecified; Z88.2 Allergy status to sulfonamides; K22.9 Disease of esophagus, unspecified; K44.9 Diaphragmatic hernia without obstruction or gangrene; B95.2 Enterococcus as the cause of diseases classified elsewhere
CPT/HCPCS: 36415; 36600; 71250; 74176; 78264; 80048; 80053; 80076; 81003; 82308; 82550; 82607; 82728; 82746; 82803; 82947; 83540; 83550; 83690; 83735; 84100; 84132; 84703; 85025; 85027; 86850; 86900; 86901; 86923; 87086; 87088; 87186; 88305; 88312; 94010; 94640; 94760; 96361; 96374; 96375; 99285; A9541; G0365; J0500; J0780; J1200; J1644; J1815; J1940; J2020; J2250; J2543; J2550; J2765; J2916; P9016; Q4081

== ENCOUNTER 2016-12-25 17:00 | Emergency (ER) | payer OTHER ==
--- NOTE | ~2016-12-25 | CR72 ---
[facility] A Service of [facility] & [facility] RADIOLOGY TEXT RESULTS PATIENT: CELSO VALDEZ LOCATION: [facility] : [birth year] UNIT #: [id number] AGE: [address]: Erasto Ye MD SEX: F ORDER DR: [id number] [facility] [address] [place], [place] [address] [id number] E MR#: [id number] Acc #: [id number] NAME: CELSO VALDEZ : 1970 SEX: F STUDY DATE/TIME: 12/25/2016 15:18 UNIT: [facility] ROOM: STUDY DESCRIPTION: CR Chest Single View Portable Attending Physician: Ze Ye M.D. Ordering Physician: Ed Doc Clarence Aranda Primary Care Physician: Palak Cano M.D. MEDICAL IMAGING REPORT This report is preliminary unless electronic signature is present EXAM Portable chest, 12/25/2016. HISTORY Chest pain, left side, since yesterday. COMPARISON 10/20/2016 FINDINGS A portable view of the chest was obtained. The heart size and vascularity are normal, and the lungs are clear. The bones are unremarkable. A central venous catheter has its tip in the right atrium. IMPRESSION No active disease; no change. Dictated by... Gunner Plasencia M.D. THIS IS AN ELECTRONICALLY VERIFIED REPORT Gunner Plasencia M.D. at 12/26/2016 6:08 AM DEE DEE/coco TD: 12/25/2016 17:43 JOB #: [id number] MEDICAL IMAGING REPORT Page 1 of 1 COPY
--- NOTE | ~2016-12-25 | EKG ---
PATIENT: CELSO VALDEZ UNIT #: [id number] Ventricular Rate: 94 BPM Atrial Rate: 94 BPM P-R Interval: 140 ms QRS Duration: 86 ms Q-T Interval: 382 ms QTC Calculation(Bezet): 477 ms P [place]: 29 degrees Calculated R [place]: -29 degrees Calculated T [place]: 28 degrees Diagnosis Line: Normal sinus rhythm Diagnosis Line: Possible Anterolateral infarct (cited on or before Diagnosis Line: 09-OCT-2016) Diagnosis Line: Abnormal ECG Diagnosis Line: When compared with ECG of 09-OCT-2016 10:36, Diagnosis Line: Questionable change in initial forces of Lateral Diagnosis Line: leads Diagnosis Line: Confirmed by LUIS F VERA MD ([id number]) on 12/25/2016 Diagnosis Line: 10:34:53 PM INTERPRETING MD: CHUY NORTON
[2016-12-25 15:58] LABS: BASOPHIL% 0.5 % (0-2.5); EOSINOPHIL# 0.2 X10e3 (0-0.7); EOSINOPHIL% 2.1 % (0.0-7.0); HEMATOCRIT 29.7 % (35.0-45.0); HEMOGLOBIN 9.7 gm/dL (12.0-16.0); LYMPHOCYTE# 1.6 X10e3 (1.0-3.5); LYMPHOCYTE% 19.9 % (17.0-45.0); MEAN CELL VOLUME 87.2 FL (83-96); MEAN CORPUSCULAR HEMOGLOBIN 28.4 PG (28-34); MEAN CORPUSCULAR HGB CONC 32.6 g/dL (30-36); MEAN PLATELET VOLUME 8.3 FL (6.5-11.5); MONOCYTE# 0.5 X10e3 (0-1.0); MONOCYTE% 6.1 % (3.0-12.0); NEUTROPHIL# 5.6 X10e3 (1.5-7.1); NEUTROPHIL% 71.4 % (40-75); PLATELET COUNT 220 X10e3 (140-420); RED BLOOD COUNT 3.41 X10e (3.90-5.30); RED CELL DISTRIBUTION WIDTH 18.2 % (11.0-15.5); WHITE BLOOD COUNT 7.9 X10e3 (4.0-10.5)
[2016-12-25 16:00] LABS: DIFF IND NO
[2016-12-25 16:07] LABS: POC - CKMB 2.9 ng/mL (0.0-7.9); POC - TROPONIN <0.05 ng/mL (<=0.05)
[2016-12-25 16:22] LABS: PROTHROMBIN TIME (PATIENT) 10.2 SECONDS (9.6-11.5)
[2016-12-25 16:26] LABS: ALKALINE PHOSPHATASE 165 U/L (32-92); ALT (SGPT) 14 U/L (10-40); AST (SGOT) 25 U/L (10-42); BILIRUBIN,TOTAL 0.1 mg/dL (0.2-2.0); BLOOD UREA NITROGEN 22 mg/dL (9-23); BUN/CREATININE RATIO 7.33; CALCIUM SERUM 8.4 mg/dL (8.4-10.2); CARBON DIOXIDE 29 mmol/L (22-31); CHLORIDE 99 mmol/L (100-111); GLOM FILT RATE Estimated 17.8 mL/min (>60); GLUCOSE FASTING 321 mg/dL (70-110); POTASSIUM 3.3 mmol/L (3.5-5.1); PROTEIN TOTAL SERUM 7.7 g/dL (6.0-8.3); SODIUM 137 mmol/L (135-145)
[2016-12-25 16:27] LABS: BILIRUBIN, DIRECT <0.1 mg/dL (0.0-0.2)
[~2016-12-25 17:00] MED LIST changes: +ACETAMINOPHEN650 M4 PO; +APRESOLINE PO; +CALCIUM 600 +1 EAC2 PO; +COREG12.5 MG PO; +ISORDIL PO; +LANTUS100 UNITS/ INJ; +LASIX80 MG PO; +LEVEMIR100 UNITS/ SUBQ; +MAGNESIUM400 M1 PO; +SYNTHROID75 MCG PO
[2016-12-25 17:21] LABS: POC - CKMB 2.5 ng/mL (0.0-7.9); POC - TROPONIN <0.05 ng/mL (<=0.05)
[2017-02-05] MEDS ORDERED: TRESIBA FL100 UNIT/1 SUBQ (08:21)
[2017-02-05] MEDS ORDERED: TROKENDI XR25 MG PO (08:23)
[2017-02-05] MEDS ORDERED: TORSEMIDE100 M1 PO (08:24)
[2017-02-05] MEDS ORDERED: VASCEPA1 GM PO (08:28)
[2017-02-05] MEDS ORDERED: REGLAN PO (13:41)
[2017-02-05] MEDS ORDERED: PROTONIX PO (13:59)
[2017-02-05] MEDS ORDERED: GABAPENTIN300 MG PO (14:00)
[2017-02-05] MEDS ORDERED: CALCIUM ACETAT667 M1 PO (14:00)
[2017-02-05] MEDS ORDERED: LIPITOR PO (14:00)
[2017-02-05] MEDS ORDERED: ACIDOPHILUS1 EAC3 PO (14:00)
[2017-02-05] MEDS ORDERED: CLARITIN10 M2 PO (14:01)
[2017-02-05] MEDS ORDERED: DESVENLAFAXINE50 M1 PO (14:03)
[2017-02-05] MEDS ORDERED: SINGULAIR PO (14:03)
[2017-02-05] MEDS ORDERED: NOVOLOG100 U/ML INJ (14:07)
== END 2016-12-25 18:29 | disposition home or self-care (01) ==
LOC: CED 17:00
PROVIDERS: Emergency Medicine
DX: R07.89 Other chest pain (principal); D53.9 Nutritional anemia, unspecified; I12.0 Hypertensive chronic kidney disease with stage 5 chronic kidney disease or end stage renal disease; E11.22 Type 2 diabetes mellitus with diabetic chronic kidney disease; N18.6 End stage renal disease; E78.5 Hyperlipidemia, unspecified; Z79.899 Other long term (current) drug therapy; Z88.1 Allergy status to other antibiotic agents; Z88.5 Allergy status to narcotic agent; Z88.8 Allergy status to other drugs, medicaments and biological substances
CPT/HCPCS: 36415; 71010; 80048; 80076; 82553; 83880; 84484; 85025; 85610; 85730; 93005; 99284

== ENCOUNTER → 2017-02-05 | Outpatient (CLI) | payer OTHER ==
[~2017-02-05] MED LIST changes: +ACETAMINOPHEN650 M1 PO; +ACIDOPHILUS1 EAC3 PO; +ALPHA LIPOIC A200 M1 PO; +BREO ELLIPTA 11 EACH INH; +CALCIUM ACETAT667 M1 PO; +CITALOPRAM HBR40 MG PO; +CLARITIN10 M2 PO; +CLEOCIN150 M1 PO; +DESVENLAFAXINE50 M1 PO; +LIPITOR PO; +MAG-OXIDE400 MG PO; +NYSTATIN1 EAC1 MC; +PROBIOTIC250 MG PO; +SILVADENE TOP; +SINGULAIR PO; +SODIUM BICARBO650 MG PO; +TRESIBA FL100 UNIT/1 SUBQ
--- NOTE | ~2017-02-05 | XA81 ---
[facility] A Service of [facility] RADIOLOGY TEXT RESULTS PATIENT: CELSO VALDEZ LOCATION: [facility] : 68 UNIT #: [id number] AGE: [address]: Kyle Plasencia MD SEX: F ORDER DR: [id number] [facility]. [place], [place] [address] [id number] O MR#: [id number] Acc #: [id number] NAME: CELSO VALDEZ : 1970 SEX: F STUDY DATE/TIME: 02/05/2017 9:49 UNIT: [facility] ROOM: STUDY DESCRIPTION: XA CVC Remove Tunneled Cath WO Attending Physician: Kyle Plasencia M.D. Ordering Physician: Kyle Plasencia M.D. Primary Care Physician: Palak Cano M.D. MEDICAL IMAGING REPORT This report is preliminary unless electronic signature is present EXAM Tunneled catheter removal. INDICATIONS Renal failure; this has subsequently resolved. Patient no longer requires dialysis. TECHNIQUE The procedure was explained to the patient, including risks, benefits, potential complications and potential for alternative forms of treatment. Informed consent was obtained, and prior to initiating procedure, a formal time-out procedure was performed. The patient's preexisting tunneled catheter was prepped and draped in the usual sterile fashion. Time-out was performed as per protocol. Skin and subcutaneous tissues were anesthetized with buffered lidocaine and lidocaine with epinephrine, and the cuff of the catheter was dissected, using a combination of blunt and sharp dissection. Catheter was then removed in its entirety. Manual pressure was applied until hemostasis was obtained. Final fluoroscopic image was obtained; it showed no residual catheter. Total fluoroscopy time 0.1 minutes; AK was 5 mGy-cm. IMPRESSION Successful removal of this patient's right internal jugular vein tunneled dialysis catheter in its entirety. Fluoroscopy was used during the procedure, and permanent images were saved. Dictated by... Marci Doyle M.D. [facility] A Service of [facility] RADIOLOGY TEXT RESULTS PATIENT: CELSO VALDEZ LOCATION: [facility] : [birth year] UNIT #: [id number] AGE: [address]: Kyle Plasencia MD SEX: F ORDER DR: THIS IS AN ELECTRONICALLY VERIFIED REPORT Marci Doyle M.D. at 02/08/2017 3:39 PM AFF/coco TD: 02/06/2017 17:35 JOB #: [id number] MEDICAL IMAGING REPORT Page 1 of 1 COPY
[2017-02-05 07:47] LABS: HEMATOCRIT 37.7 % (35.0-45.0); HEMOGLOBIN 11.9 gm/dL (12.0-16.0); MEAN CELL VOLUME 89.8 FL (83-96); MEAN CORPUSCULAR HEMOGLOBIN 28.4 PG (28-34); MEAN CORPUSCULAR HGB CONC 31.7 g/dL (30-36); MEAN PLATELET VOLUME 8.8 FL (6.5-11.5); RED BLOOD COUNT 4.2 X10e (3.90-5.30); RED CELL DISTRIBUTION WIDTH 18.8 % (11.0-15.5); WHITE BLOOD COUNT 8.4 X10e3 (4.0-10.5)
[2017-02-05 08:07] LABS: PARTIAL THROMBOPLASTIN TIME 26.7 SECONDS (23.5-31.3); PROTHROMBIN TIME (PATIENT) 10.2 SECONDS (9.6-11.5)
== END | disposition home or self-care (01) ==
LOC: CIVR 07:10
PROVIDERS: Internal Medicine Nephrology
DX: Z49.01 Encounter for fitting and adjustment of extracorporeal dialysis catheter (principal); N18.3 Chronic kidney disease, stage 3 (moderate); J44.9 Chronic obstructive pulmonary disease, unspecified; G47.30 Sleep apnea, unspecified; Z88.1 Allergy status to other antibiotic agents; Z88.8 Allergy status to other drugs, medicaments and biological substances
CPT/HCPCS: 36415; 77001; 85027; 85610; 85730; J2250; J2550; J3010

== ENCOUNTER 2017-02-08 13:53 | Inpatient (IN) | payer OTHER ==
--- NOTE | ~2017-02-08 | CR72 ---
[facility] A Service of [facility] & [facility] RADIOLOGY TEXT RESULTS PATIENT: CELSO VALDEZ LOCATION: [facility] : [birth year] UNIT #: [id number] AGE: [address]: Naila Luque MD SEX: F ORDER DR: [id number] [facility] [address] [place] [address] [place], [place] [address] [id number] I MR#: [id number] Acc #: [id number] NAME: CELSO VALDEZ : 1970 SEX: F STUDY DATE/TIME: 02/09/2017 1:29 UNIT: [facility] ROOM: [facility] STUDY DESCRIPTION: CR Chest Single View Portable Attending Physician: Naila Luque M.D. Ordering Physician: Naila Luque M.D. Primary Care Physician: Palak Cano M.D. MEDICAL IMAGING REPORT This report is preliminary unless electronic signature is present EXAM Chest x-ray, 02/09/17 HISTORY PICC placement. TECHNIQUE AP portable chest x-ray. FINDINGS Newly placed right arm PICC is in good position with tip in the mid SVC at 0129 hours on 02/09/17. Low lung volumes with mild bibasilar atelectasis. Heart size normal. No pleural effusion. IMPRESSION Newly placed PICC in good position. Dictated by... Bradford Hayward M.D. THIS IS AN ELECTRONICALLY VERIFIED REPORT Bradford Hayward M.D. at 02/09/2017 6:04 AM SILVANAW/bailey TD: 02/09/2017 02:08 JOB #: [id number] MEDICAL IMAGING REPORT Page 1 of 1 COPY
--- NOTE | ~2017-02-08 | CT95 ---
[facility] A Service of [facility] & [facility] RADIOLOGY TEXT RESULTS PATIENT: CELSO VALDEZ LOCATION: [facility] 215-01 : [birth year] UNIT #: [id number] AGE: [address]: Naila Luque MD SEX: F ORDER DR: [id number] [facility]. [place], [place] [address] [id number] E MR#: [id number] Acc #: [id number] NAME: CELSO VALDEZ : 1970 SEX: F STUDY DATE/TIME: 02/08/2017 16:16 UNIT: [facility] ROOM: STUDY DESCRIPTION: CT Lower Ext Rt Wo Cont Attending Physician: Roxy Gray M.D. Ordering Physician: Roxy Gray M.D. Primary Care Physician: Palak Cano M.D. MEDICAL IMAGING REPORT This report is preliminary unless electronic signature is present EXAM CT right foot without contrast, 02/08/17 HISTORY 46-year-old female with redness and swelling of the right foot today. Necrotizing fasciitis. Nonhealing wound in the right foot. COMPARISON None. TECHNIQUE Helical scan performed through the right foot without IV contrast. Coronal and sagittal reformatted images. This CT exam was performed with one or more of the following radiation dose reduction techniques: Automatic exposure control, adjustment of mA and/or kV according to patient size, and iterative reconstruction. FINDINGS There is a focal soft tissue ulceration along the medial plantar aspect of the midfoot at the level of the base of the first metatarsal. This is associated with significant skin thickening and extensive subcutaneous soft tissue edema and stranding. A subcutaneous fluid collection cannot be excluded. There are postsurgical changes from transmetatarsal amputation of the first ray, as well as partial amputation of the third toe at the level of the mid proximal phalanx. There is disorganization and fragmentation noted throughout the midfoot, most suggestive of Charcot neuropathic arthropathy. No definite bony destructive changes to suggest osteomyelitis by CT. However, MRI would be a more sensitive modality to exclude osteomyelitis. There are extensive vascular calcifications. There are postsurgical changes involving the second toe and head of the second metatarsal. IMPRESSION STS. [facility] A Service of [facility] RADIOLOGY TEXT RESULTS PATIENT: CELSO VALDEZ LOCATION: [facility] 215-01 : [birth year] UNIT #: [id number] AGE: [address]: Naila Luque MD SEX: F ORDER DR: 1. Focal soft tissue ulceration along the medial plantar aspect of the midfoot at the level of the base of the first metatarsal. This is associated with fairly extensive soft tissue cellulitis and skin thickening. An underlying fluid collection in the subcutaneous soft tissues cannot be excluded on this unenhanced exam. No definite CT evidence of osteomyelitis. However, CT is not a sensitive modality for osteomyelitis and MRI may be considered on a non-emergent basis, if clinically indicated. 2. Disorganization and fragmentation noted throughout the midfoot, most suggestive of Charcot neuropathic arthropathy. 3. Postsurgical changes from partial amputation of the third toe and transmetatarsal amputation of the first ray. Dictated by... Jorge Comer M.D. THIS IS AN ELECTRONICALLY VERIFIED REPORT Jorge Comer M.D. at 02/09/2017 9:10 AM ALVINO/bailey TD: 02/08/2017 20:30 JOB #: [id number] MEDICAL IMAGING REPORT Page 1 of 1 COPY
--- NOTE | ~2017-02-08 | CR63 ---
[facility] A Service of [facility] & [facility] RADIOLOGY TEXT RESULTS PATIENT: CELSO VALDEZ LOCATION: [facility] 224-01 : [birth year] UNIT #: [id number] AGE: [address]: Naila Luque MD SEX: F ORDER DR: [id number] [facility] [address] [facility]. [place], [place] [address] [id number] I MR#: [id number] Acc #: [id number] NAME: CELSO VALDEZ : 1970 SEX: F STUDY DATE/TIME: 02/11/2017 16:49 UNIT: [facility] ROOM: [facility] STUDY DESCRIPTION: CR Chest 2 View Attending Physician: Naila Luque M.D. Ordering Physician: Naila Luque M.D. Primary Care Physician: Palak Cano M.D. MEDICAL IMAGING REPORT This report is preliminary unless electronic signature is present EXAM PA and lateral radiographs of the chest, 02/11/2017 HISTORY Short of air and cough. FINDINGS PA and lateral radiographs of the chest are presented. Comparison 02/09/2017. Mild dextroscoliosis thoracic spine. Heart mildly enlarged. Lung volumes moderate. Mild vascular prominence. Correlate with any clinical indications of vascular congestion. There is no pierce pulmonary edema. No pneumonia suggested. No pleural effusion, pneumothorax or suspicious nodule. Right upper vein approach PICC unchanged. Dictated by... Toan Whitmore M.D. THIS IS AN ELECTRONICALLY VERIFIED REPORT Toan Whitmore M.D. at 02/12/2017 8:13 AM Aris TD: 02/11/2017 23:28 JOB #: [id number] MEDICAL IMAGING REPORT Page 1 of 1 COPY
--- NOTE | ~2017-02-08 | BMI ---
[facility] Nutrition Therapy DATE: 02/09/17 Patient: CELSO VALDEZ Physician: RADHA Address: [address] [place] [address] Room/Bed: [address] [place] [address], Zip: [place] [address] Admit Date: 02/08/17 Date of : [birth year] Height: 5 4 Weight: 238 107.95 HIGH BMI NOTE: DX: 46 y/o female admitted with R foot cellulitis ANTHROPOMETRICS: Ht: 69", Wt: 108 kg, BMI: 40 (Stage III obese) DIET: NCS INTERVENTION: + healthy heart, meds/fluids per MD RECOMMENDATIONS: Consider adding healthy heart restriction to current diet order to promote a gradual weight loss towards a healthy BMI range. Respectfully, LUKE STANLEY, MENDY, LD [employer] [facility] [employer] cc: client file
--- NOTE | ~2017-02-08 | CO ---
Unit #: [id number] #: [id number] Patient: CELSO VALDEZ [id number] [address] [place], [place] [address] [id number] I MR#: [id number] NAME: CELSO VALDEZ ROOM: 215 Age: 46 Sex: F Admission Date: 02/08/2017 : 1970 Attending Physician: Naila Luque M.D. Primary Care Physician: Palak Cano M.D. Consultation Date: 02/09/2017 CONSULTATION REPORT REASON FOR CONSULTATION Cellulitis in right foot. HISTORY OF PRESENT ILLNESS This is a 46-year-old female well known to our service. The patient was last seen in October 2016 for right foot infection/osteomyelitis, status post jail antibiotic therapy with complications involving some renal failure. The patient has since been doing well. She has been doing local wound care at home and has been following up with Dr. Walker. The patient reports that over the last 24 hours she has had some increasing swelling, erythema near her ulcer site on her right mid foot. The patient reports she has had no fever at home but has experienced some chills. She denies any nausea, vomiting, diarrhea or urine symptoms The patient reports that her other lower extremity wounds on the right leg have been healing and have been doing well with local wound care. The patient was admitted through the emergency room and a CT scan was done which was nonconclusive for osteomyelitis or possible fluid collection so patient is currently awaiting transfer to get an MRI. Surgery is following this patient as well. PAST MEDICAL HISTORY As previously stated above, also including obesity, diabetes, hypertension, depression, chronic kidney disease, hyperlipidemia, COPD, multiple previous surgeries including left third toe metatarsal joint dysarthric lesion, hardware removal of left third toe, debridement of abscesses in April 2016 and multiple surgeries to her foot. The patient has also a history of hysterectomy and cholecystectomy. ALLERGIES Tetracycline, sulfa, vancomycin, Zofran and hydrochlorothiazide. MEDICATIONS The patient is currently on Zyvox, Zosyn. For other medications, please refer to patient's MAR. SOCIAL HISTORY The patient denies any alcohol abuse, drug abuse or tobacco abuse. REVIEW OF SYSTEMS Negative except for as previously mentioned above. PHYSICAL EXAMINATION VITAL SIGNS: Temperature 97.3, pulse is 105, blood pressure 157/85 and respiratory rate is 16. Unit #: [id number] #: [id number] Patient: CELSO VALDEZ GENERAL: This is a no apparent distress female who is sitting up in the bed comfortably. HEENT/NECK: Her pupils are equal. Her neck is supple. CARDIOVASCULAR: S1, S2. Regular rate and rhythm. PULMONARY: Clear to auscultation bilaterally with no wheezes or rhonchi noted. ABDOMEN: Positive bowel sounds. Soft and rounded. EXTREMITIES: Right foot shows some abnormality and deformity with a nondraining ulcer with some erythema and swelling noted. DIAGNOSTIC STUDIES LABORATORY: BUN 52, creatinine 3.0, sodium 138, potassium 4.3, chloride 109, CO2 19, AST 29, ALT 25. Procalcitonin not done this admission. CRP is 3.3. White blood cell count 8.7 and on admission 9.8, hemoglobin 9.9, hematocrit 31.5, platelets 158. Sed rate is 108. Stool culture is pending. Blood cultures are currently pending. IMAGING: CT scan - please see full report for complete details. They are just some focal soft tissue swelling/cellulitis and fluid collection and osteomyelitis that are not excluded. There is evidence of Charcot foot. IMPRESSION This is a 46-year-old female with multiple infections requiring surgery to her right foot and has known Charcot foot. The patient has had an ulcer that is currently nondraining and she sees Dr. Walker in office. Patient now has had acute development of pain, swelling and erythema near her ulcer site without any evidence of current drainage. CT scan was nondiagnostic and MRI is currently pending. At this time, agree to continue therapy for suspected infection and cellulitis with Zyvox and Zosyn due to patient's multiple antibiotic allergies. The patient is on some mood stabilizing drugs and there is a note from pharmacy to the admitting team for possibly stopping her mood stabilizing drugs but will follow patient closely while she is in the hospital. Will followup workup. Will continue local wound care to her other right lower extremity wounds. However, these appear clean without any evidence of active cellulitis. Will ask the nursing staff to call with any positive blood cultures and will check a CBC in the a.m. Thank you for allowing us to participate in the care of this patient. Further recommendations to follow pending patient's clinical course. Dictated by... Isa Lyons A.P.R.N. for Clarence Escalante/maddy TD: 02/09/2017 12:12 JOB #: [id number] Unit #: [id number] #: [id number] Patient: CELSO VALDEZ CONSULTATION REPORT Page 1 of 1 X X CONSULTATION REPORT
--- NOTE | ~2017-02-08 | HP ---
Unit #: [id number] #: [id number] Patient: CELSO VALDEZ [id number] [address] [place], [place] [address] [id number] I MR#: [id number] NAME: CELSO VALDEZ ROOM: 215 Age: Sex: F Admission Date: 02/08/2017 : 1970 Attending Physician: Naila Luque M.D. Primary Care Physician: Palak Cano M.D. HISTORY AND PHYSICAL CHIEF COMPLAINT Right foot pain, swelling and redness. HISTORY OF PRESENT ILLNESS The patient is a 46-year-old female who is very well known to us from multiple admissions. The last admission in the hospital was November. According to the patient she has not been in any other hospital. She was doing pretty well. Her wounds are healing well. The patient has had necrotizing fasciitis and was in [facility] for wound care also. Her leg wounds are healing. Upper leg wound has healed really well. Lower leg wound is healing, but still has a small amount of opening for which she gets dressing done. She follows up with the wound clinic. She noticed a little ulcer the day before on the plantar aspect of the foot and went to see Dr. Cruz. It had opened up. It started to swell and started to have redness yesterday. The patient was having severe pain and came to the emergency room for further evaluation and was admitted for cellulitis and foot ulceration. The patient does not complain of fever, chills or rigors. She does complain of nausea and vomiting, but she has gastroparesis that is ongoing. She is also complaining of cough. The patient had an appointment with her primary care physician, Dr. Meyer for persistent cough. She has a history of asthma and uses nebulizer treatments at home. PAST MEDICAL HISTORY 1. Hypertension. 2. Chronic obstructive pulmonary disease. 3. Chronic anemia. 4. Diabetes mellitus type 2. 5. History of depression and anxiety. 6. History of asthma. 7. History of gastroparesis. 8. History of chronic kidney disease. 9. Obstructive sleep apnea. 10. Morbid obesity. 11. History of right lower extremity necrotizing fasciitis, status post debridement earlier this year. PAST SURGICAL HISTORY 1. History of right third toe metatarsophalangeal joint disarticulation. 2. History of debridement of the right lower extremity wound. 3. History of hysterectomy. 4. History of cholecystectomy. SOCIAL HISTORY Unit #: [id number] #: [id number] Patient: CELSO VALDEZ The patient has no history of smoking, alcohol or drug abuse. FAMILY HISTORY Unremarkable. ALLERGIES The patient is allergic to multiple medications, including hydrocodone, tetracycline, Bactrim, adhesive tape, Zofran, vancomycin and Levaquin. HOME MEDICATIONS 1. Calcium and vitamin D one tablet daily. 2. Vitamin B12 500 mcg p.o. daily. 3. Protonix 40 mg daily. 4. Hydralazine 50 mg b.i.d. 5. Calcium acetate 667 mg p.o. daily. 6. Lipitor 40 mg daily. 7. Gabapentin 300 mg daily. 8. Florastor 1 p.o. b.i.d. 9. Claritin 10 mg daily. 10. Synthroid 75 mcg daily. 11. Desvenlafaxine 50 mg daily. 12. Singulair 10 mg daily. 13. Reglan 10 mg t.i.d. 30 minutes before meals. 14. Magnesium 400 mg daily. 15. NovoLog 28 units t.i.d. with meals. 16. Tarceva 38 units subcutaneous b.i.d. 17. Trokendi XR 25 mg daily. 18. Torsemide 100 mg daily. 19. Vascepa 2 g b.i.d. REVIEW OF SYMPTOMS As per history of present illness. The patient does not have any history of fevers, chills or rigors. No history of chest pain. No history of abdominal pain. No history of ENT problems. No history of skin issues beside right lower extremity ulceration and wound. DICTATION STOPPED Dictated by Clarence Lopez TD: 02/09/2017 13:59 JOB #: [id number] Unit #: [id number] #: [id number] Patient: CELSO VALDEZ HISTORY AND PHYSICAL Page 1 of 1 X Naila Luque MD HISTORY AND PHYSICAL
--- NOTE | ~2017-02-08 | MR61 ---
[facility] A Service of [facility] & [facility] RADIOLOGY TEXT RESULTS PATIENT: CELSO VALDEZ LOCATION: [facility] - : [birth year] UNIT #: [id number] AGE: [address]: Naila Luque MD SEX: F ORDER DR: [id number] [place] [address] [facility]. [place], [place] [address] [id number] I MR#: [id number] Acc #: [id number] NAME: CELSO VALDEZ : 1970 SEX: F STUDY DATE/TIME: 02/09/2017 12:00 UNIT: [facility] ROOM: [facility] STUDY DESCRIPTION: MR Foot Wo Contrast Rt Attending Physician: Naila Luque M.D. Ordering Physician: Physician Non-Staff Primary Care Physician: Palak Cano M.D. MRI CENTER REPORT This report is preliminary unless electronic signature is present. EXAM Right foot MRI without contrast 02/09/2017 HISTORY 46-year-old female with pain and swelling along the plantar aspect of the foot for several months. Nonhealing wound. History of diabetes. Order states evaluate for abscess/osteomyelitis. COMPARISON STUDIES Comparison CT right foot 02/08/2017 TECHNIQUE Multiplanar, multisequence high field MR imaging of the right midfoot was performed without IV gadolinium. FINDINGS There is again noted a focal soft tissue ulceration along the medial plantar aspect of the midfoot at the level of the base of the first metatarsal. This is associated with moderate skin thickening and subcutaneous soft tissue edema. Findings consistent with cellulitis. No drainable fluid collections to suggest abscess. No MR evidence of osteomyelitis. There is fragmentation and slight disorganization throughout the mid foot, consistent with Charcot neuropathic arthropathy. There are advanced degenerative changes of the second and fourth metatarsophalangeal joints. There are postsurgical changes from transmetatarsal amputation of the first ray and partially amputation of the third toe through the head of the third proximal phalanx. There is generalized edema and fatty atrophy throughout the intrinsic musculature of the foot, most suggestive of chronic diabetic neuropathic changes. No hind foot effusion. Visualized flexor and extensor tendons are grossly unremarkable. IMPRESSION [facility] A Service of [facility] & [facility] RADIOLOGY TEXT RESULTS PATIENT: CELSO VALDEZ LOCATION: A 215-01 : [birth year] UNIT #: [id number] AGE: [address]: Naila Luque MD SEX: F ORDER DR: 1. Focal soft tissue ulceration along the medial plantar aspect of the midfoot at the level of the base of the first metatarsal. This is associated with moderate skin thickening and subcutaneous soft tissue cellulitis. No drainable fluid collection to suggest abscess. No MR evidence of osteomyelitis. 2. Disorganization and fragmentation noted throughout the mid foot, most consistent with Charcot neuropathic arthropathy. 3. Advanced arthrosis of the second and fourth metatarsophalangeal joints. Postsurgical changes from transmetatarsal amputation of the first ray and partial amputation of the third toe at the head of the third proximal phalanx. 4. Mild generalized edema and fatty atrophy throughout the intrinsic musculature of the foot, most suggestive of chronic diabetic neuropathic change. Dictated by... Jorge Comer M.D. THIS IS AN ELECTRONICALLY VERIFIED REPORT Jorge Comer M.D. at 02/09/2017 4:59 PM Elisa TD: 02/09/2017 16:08 JOB #: [id number] MRI CENTER REPORT Page 1 of 1 COPY
--- NOTE | ~2017-02-08 | CO ---
Unit #: [id number] #: [id number] Patient: CELSO VALDEZ [id number] [address] [address] [id number] I MR#: [id number] NAME: CELSO VALDEZ ROOM: 215 Age: 46 Sex: F Admission Date: 02/08/2017 : 1970 Attending Physician: Naila Luque M.D. Primary Care Physician: Palak Cano M.D. Consultation Date: 02/09/2017 CONSULTATION REPORT REASON FOR CONSULT Management of chronic kidney disease. HISTORY OF PRESENT ILLNESS Ms. Valdez is a very pleasant 46-year-old white female with hypertension and diabetes whom we were asked to see for her chronic kidney disease. The patient had been on dialysis for several months due to acute tubular necrosis from previous sepsis syndrome and infection. Patient has recovered enough to stop dialysis and has now been off of dialysis for about 3 weeks. She says she just had her tunneled catheter removed this past Sunday. Patient presented to the emergency room with complaints of right foot pain and swelling and is being treated for some cellulitis. The patient is currently being covered with Zyvox and Zosyn, as they are trying to avoid vancomycin. She says that her blood pressure medication was recently increased for hypertension. She says her swelling is pretty well controlled on her current torsemide dose. She denies any chest discomfort or shortness of breath. No urinary complaints. No rashes. No itching. PAST MEDICAL HISTORY Her past medical history is significant for CKD stage 4 due to diabetic nephropathy, diabetes, hypertension, peripheral vascular disease, previous osteomyelitis, obesity, obstructive sleep apnea, COPD, GERD, history of migraines and chronic anemia. PAST SURGICAL HISTORY She has had a cholecystectomy, hysterectomy, toe amputations and an ovarian tumor removed. CURRENT MEDS 1. Calcium acetate 667 mg daily. 2. Topamax 25 mg a day. 3. Vascepa 2 grams p.o. b.i.d. 4. Dilaudid p.r.n. 5. Phenergan p.r.n. 6. Pepcid 20 mg a day. 7. Vitamin B12 daily. 8. Hydralazine 50 mg b.i.d. 9. Lipitor 40 mg at bedtime. 10. Gabapentin 300 mg a day. 11. Claritin 10 mg a day. 12. Florastor b.i.d. 13. Synthroid 75 mcg a day. 14. Pristiq 50 mg daily. Unit #: [id number] #: [id number] Patient: CELSO VALDEZ 15. Reglan 10 mg t.i.d. 16. Magnesium oxide 400 mg a day. 17. Singulair 10 mg daily. 18. Torsemide 100 mg daily. 19. Sliding scale insulin. 20. Levemir 38 units daily. 21. NovoLog insulin 28 units t.i.d. 22. Zyvox 600 mg IV q.12. 23. Zosyn 3.375 gram IV q.8. ALLERGIES Hydrocodone, tetracycline, Bactrim, adhesive tape, IV magnesium, Zofran, vancomycin and Levaquin. FAMILY HISTORY Family history is negative for anyone in the family with kidney problems. Diabetes and hypertension do run in the family. SOCIAL HISTORY The patient denies any active alcohol, tobacco or drug use. REVIEW OF SYSTEMS A complete 12-point review of systems was completed with the above findings. In addition, she denies any fever or chills. No headaches or dizziness. No nosebleeds, sore throat or earache. No chest pain or palpitations. No cough or hemoptysis. No nausea, vomiting or diarrhea. No bright red blood per rectum or melena. No dysuria or hematuria. Mild swelling of her legs. No rashes. No itching. No flank pain. No night sweats or hot flashes. No intolerance to heat or cold. No bleeding issues. No recent weight changes. Unless otherwise indicated, the review of systems was negative. PHYSICAL EXAMINATION VITAL SIGNS: The patient is afebrile. Pulse 87 to 105, respiratory rate 16, blood pressure 157/85. GENERAL: This is a pleasant 46-year-old female sitting up in bed, alert and oriented x3, currently in no acute distress. HEENT: Head is atraumatic, normocephalic. Eyes show pale conjunctiva with no scleral icterus. No nasal drainage or nosebleeds. Oropharynx is moist. No thrush. NECK: Neck shows no JVD. No rigidity. CARDIOVASCULAR: Heart is tachycardic but regular with no S3. No rub appreciated. RESPIRATORY: Lungs are clear with no wheezing or rhonchi. Breathing is nonlabored. ABDOMEN: Abdomen is soft, nontender, nondistended. Bowel sounds are present. EXTREMITIES: Patient has trace to +1 edema below the knees bilaterally. SKIN: Skin is without rashes. MUSCULOSKELETAL EXAM: No CVA tenderness to palpation. NEUROLOGIC EXAM: Cranial nerves are grossly intact with no gross motor deficits. LYMPHATIC EXAM: There is no neck cervical lymphadenopathy. PSYCHIATRIC EXAM: Mood and affect appear normal. DIAGNOSTIC STUDIES LABS: Chemistry today - Sodium 138, potassium 4.3, chloride 109, bicarb 19, glucose 257, BUN and creatinine 52 and 3 respectively. White count Unit #: [id number] #: [id number] Patient: CELSO VALDEZ normal at 8.7, hemoglobin 9.9. Yesterday's creatinine was 3.2. Prior to that creatinine was 3 back on December 25. IMAGING: Chest x-ray showed no effusion. ASSESSMENT AND PLAN 1. Acute on chronic kidney disease stage 4. Again the patient has known diabetic nephropathy and has recovered from acute kidney injury and has now been off dialysis for the last several weeks. We will continue to monitor off dialysis. Certainly, CT scan dye and NSAIDs should be avoided, and we will have to be cautious with treating her foot infection. 2. Metabolic acidosis. I will be adding some sodium bicarbonate therapy for replacement. 3. Hypertension. Patient's blood pressure seems reasonable at the present time. If she remains tachycardic, she may need a beta-whitney added. 4. Diabetes, on insulin. 5. Anemia of chronic disease. I will be updating her iron stores. 6. Right foot infection, on antibiotics, with MRI pending. I would like thank Dr. Cano for this consult and the opportunity to participate in the evaluation and care of Ms. Valdez. Dictated by... Kael Momin Jr., M.D. NICHOLAS/nick TD: 02/09/2017 13:00 JOB #: [id number] CONSULTATION REPORT Page 1 of 1 X Kael Momin MD CONSULTATION REPORT
--- NOTE | ~2017-02-08 | DS ---
Unit #: [id number] #: [id number] Patient: MARGRET VALDEZ [id number] [address] [address] [id number] I MR#: [id number] NAME: MARGRET VALDEZ ROOM: 224 Age: 46 Sex: F Admission Date: 02/08/2017 : 1970 Discharge Date: 02/12/2017 Attending Physician: Naila Luque M.D. Primary Care Physician: Palak Cano M.D. DISCHARGE SUMMARY REVISED/ADDENDED REPORT FINAL DIAGNOSES 1. Foot cellulitis. 2. Right foot plantar ulcer. 3. No osteomyelitis. No abscess. 4. Acute kidney injury with a history of chronic kidney disease, stage 4, off dialysis. 5. Hypertension. 6. Metabolic acidosis. 7. Diabetes mellitus type 2. 8. Chronic obstructive pulmonary disease. 9. Chronic anemia. 10. History of depression/anxiety. 11. Asthma. 12. History of gastroparesis. 13. Obstructive sleep apnea. 14. Morbid obesity. 15. History of right lower extremity necrotizing fasciitis and debridement earlier this year. DISCHARGE MEDICATIONS 1. Sodium bicarb 650 mg b.i.d. 2. Tylenol 650 q.6 p.r.n. 3. Mag oxide 400 mg daily. 4. Cleocin 300 mg t.i.d. for 7 days. 5. Neurontin 300 mg daily. 6. Topamax 25 mg daily. 7. Pristiq 50 mg daily. 8. Acidophilus 200 mg daily. 9. Claritin 10 mg daily. 10. Demadex 100 mg daily. 11. Lipitor 40 mg q.h.s. 12. Hydralazine 50 mg t.i.d. 13. Insulin Tresiba 38 units subcu b.i.d. 14. NovoLog 28 units t.i.d. 15. Reglan 10 mg t.i.d. 16. Silver sulfadiazine topically daily. 17. Singulair 10 mg daily. ADDENDUM Unit #: [id number] #: [id number] Patient: MARGRET VALDEZ This is a continuation to . DISCHARGE MEDICATIONS 1. Claritin 10 mg daily. 2. Demadex 100 mg daily. 3. Lipitor 40 mg daily. 4. Hydralazine 50 mg three times a day. 5. Tresiba 38 units subcu b.i.d. 6. NovoLog 28 units t.i.d. 7. Neurontin 300 mg daily. 8. Mag oxide 400 mg daily. 9. Sodium bicarb 650 mg twice a day. 10. Neurontin 300 mg daily. 11. Topamax 25 mg daily. 12. Pristiq 50 mg daily. 13. Reglan 10 mg t.i.d. 14. Singulair 10 mg daily. 15. Florastor 250 mg twice a day. 16. Protonix 40 mg daily. 17. Calcium acetate 667 mg before breakfast. 18. Levothyroxine 75 mcg daily. 19. Vitamin B12 daily. 20. Cleocin 300 mg three times a day for seven days. LAB WORKUP ON DISCHARGE Glucose is 153. BMP shows sodium 138, potassium 3.9, chloride 107, BUN 35, creatinine 2.7, phosphorus 5.5. Wound culture is MRSA positive, sensitive to clindamycin. CBC shows WBC 7.1, hemoglobin 9.2, hematocrit 29.4 and platelet count of 147. HOSPITAL COURSE Ms. Margret Vadlez is a 46-year-old female who was admitted to the hospital for right foot pain, swelling, abscess and redness. Patient was admitted to Med/Surg unit. Dr. Witt was consulted and Dr. Holder was consulted. Dr. Witt started IV antibiotics. Culture is growing MRSA. It has been changed to Cleocin p.o. Dr. Holder has evaluated the patient. No surgical procedure at this time. The patient's redness is much improved, is being discharged home. Dr. Momin evaluated the patient for acute on chronic kidney disease. Patient does have chronic kidney disease. She was on hemodialysis in the past. Right now, continue to stay off hemodialysis. VITAL SIGNS on discharge - blood pressure is 178/86, respiratory rate 17, pulse is 103, temperature 97.9, oxygen saturation is 97%. HEAD is normocephalic. CHEST has fair air entry. CVS is regular rhythm. ABDOMEN is obese. Right foot dressing is present. DISCHARGE INSTRUCTIONS 1. Follow up with primary care provider in one week. 2. Follow up with Dr. Cruz as scheduled. 3. Prescription for Cleocin has been written. Unit #: [id number] #: [id number] Patient: MARGRET VALDEZ Dictated by... Clarence Lopez/maddy TD: 02/13/2017 08:32 JOB #: [id number] Urielte Evettejudith gap DISCHARGE SUMMARY Page 1 of 1 X Naila Luque MD X DISCHARGE SUMMARY
--- NOTE | ~2017-02-08 | CO ---
Unit #: [id number] #: [id number] Patient: CELSO VALDEZ [id number] [address] [address] [id number] I MR#: [id number] NAME: CELSO VALDEZ ROOM: 215 Age: 46 Sex: F Admission Date: 02/08/2017 : 1970 Attending Physician: Naila Luque M.D. Primary Care Physician: Palak Cano M.D. CONSULTATION REPORT CHIEF COMPLAINT Cellulitis right lower extremity. HISTORY OF PRESENT ILLNESS Ms. Valdez is a 46-year-old female well known to our practice for a longstanding history of multiple problems stemming from diabetes mellitus and foot-related complications. She has a Charcot foot on the right and is status post multiple partial digit amputations on this side as well. She states that she has had an area of callus over the plantar mid foot which has been followed by Dr. Cruz and Dr. Walker. She was last seen in our office reportedly approximately two weeks ago. She has seen Dr. Walker more recently. She states that last night the area opened up and began to drain. She reports a visible increase in soft tissue swelling accompanied by some streaking erythema. She presented immediately to the emergency department. She was started on empiric IV antibiotics with Zyvox and Zosyn. She now is seen at the request of the admitting service for possible surgical management of her foot. She denies any fever, chills or night sweats at home. PAST MEDICAL HISTORY 1. COPD. 2. Diabetes mellitus. 3. History of necrotizing fasciitis. 4. History of sepsis. 5. Chronic renal insufficiency. 6. Anemia of chronic disease. 7. Depressive disorder. 8. Anxiety disorder. 9. Hyperlipidemia. PAST SURGICAL HISTORY 1. I and D of necrotizing fasciitis in the right leg. 2. Hysterectomy. 3. Cholecystectomy. 4. Right third toe partial amputation. 5. Right hallux amputation. 6. Removal of intramedullary screw from the left third toe. SOCIAL HISTORY She has no alcohol, tobacco or drug use. She is not working. FAMILY HISTORY Noncontributory to pertinent illness. Unit #: [id number] #: [id number] Patient: CELSO VALDEZ ALLERGIES Hydrocodone, tetracycline, Bactrim, tape, Zofran, vancomycin and Levaquin. HOME MEDICATIONS Home medication list is reviewed. Please intake medication reconciliation for full record. Additionally, as an inpatient, she has been started on Zyvox and Zosyn IV. REVIEW OF SYSTEMS Ten systems are reviewed and negative except as noted above per HPI. PHYSICAL EXAMINATION GENERAL APPEARANCE: An obese 46-year-old female in no acute distress. PSYCHIATRIC: Awake, alert, oriented to person, place, time and situation with a normal range of mood and affect. HEENT: Normocephalic, atraumatic cranium. Pupils equal, round and reactive to light. CARDIAC: Regular rate and rhythm. PULMONARY: No increased work of breathing. Symmetric chest rise. ABDOMEN: Obese VASCULAR: Her feet and warm and well perfused without difficulty palpating a strong dorsalis pedis pulse. NEUROLOGIC: She has decreased peripheral nerve sensation at the feet consistent with diabetic neuropathy. MUSCULOSKELETAL: She has small mid foot ulceration which was cleaned without any active drainage or odor. There is some associated soft tissue swelling just adjacent to this but no gross fluctuance or induration. Erythema is improved apparently from her admission. DIAGNOSTIC STUDIES IMAGING: CT scan is reviewed which demonstrates extensive degenerative changes consistent with Charcot arthropathy of the foot. No obvious fluid collection identified. IMPRESSION A 46-year-old female with longstanding history of multiple diabetic-related foot issues. Currently, she has Charcot arthropathy on the right with a new mid foot ulceration and soft tissue swelling with cellulitis. PLAN She is on IV antibiotics currently. I would continue those at the discretion of the primary service. Her CT scan is inconclusive. We will obtain a MRI to evaluate for osteomyelitis or fluid collection which would require drainage. Further disposition is pending the results of the MRI. Dictated by... Fredy Holder M.D. JASMIN/lauri TD: 02/09/2017 10:43 JOB #: [id number] Unit #: [id number] #: [id number] Patient: CELSO VALDEZ CONSULTATION REPORT Page 1 of 1 X Fredy Holder MD CONSULTATION REPORT
[~2017-02-08 13:53] MED LIST changes: -ACETAMINOPHEN650 M1 PO; -ALPHA LIPOIC A200 M1 PO; -BREO ELLIPTA 11 EACH INH; -CITALOPRAM HBR40 MG PO; -CLEOCIN150 M1 PO; -MAG-OXIDE400 MG PO; -NYSTATIN1 EAC1 MC; -PROBIOTIC250 MG PO; -SILVADENE TOP; -SODIUM BICARBO650 MG PO
[2017-02-08 15:52] LABS: ALBUMIN SERUM 2.9 g/dL (3.5-5.0); ALKALINE PHOSPHATASE 219 U/L (32-92); ALT (SGPT) 25 U/L (10-40); AST (SGOT) 29 U/L (10-42); BILIRUBIN,TOTAL 0.6 mg/dL (0.2-2.0); BLOOD UREA NITROGEN 58 mg/dL (9-23); BUN/CREATININE RATIO 18.12; CALCIUM SERUM 7.8 mg/dL (8.4-10.2); CARBON DIOXIDE 18 mmol/L (22-31); CHLORIDE 106 mmol/L (100-111); CREATININE SERUM 3.2 mg/dL (0.6-1.4); GLOM FILT RATE Estimated 16.4 mL/min (>60); GLUCOSE FASTING 238 mg/dL (70-110); POTASSIUM 4.2 mmol/L (3.5-5.1); PROTEIN TOTAL SERUM 7.3 g/dL (6.0-8.3); SODIUM 135 mmol/L (135-145)
[2017-02-08 15:54] LABS: BILIRUBIN, DIRECT <0.1 mg/dL (0.0-0.2); BILIRUBIN,INDIRECT 0.5 mg/dL (0.0-0.9)
[2017-02-08 17:17] LABS: BASOPHIL% 0.4 % (0-2.5); EOSINOPHIL# 0.1 X10e3 (0-0.7); EOSINOPHIL% 0.9 % (0.0-7.0); HEMATOCRIT 33.5 % (35.0-45.0); HEMOGLOBIN 10.8 gm/dL (12.0-16.0); LYMPHOCYTE# 1.9 X10e3 (1.0-3.5); LYMPHOCYTE% 19.5 % (17.0-45.0); MEAN CELL VOLUME 89.2 FL (83-96); MEAN CORPUSCULAR HEMOGLOBIN 28.8 PG (28-34); MEAN CORPUSCULAR HGB CONC 32.3 g/dL (30-36); MEAN PLATELET VOLUME 9.5 FL (6.5-11.5); MONOCYTE# 0.6 X10e3 (0-1.0); NEUTROPHIL# 7.2 X10e3 (1.5-7.1); NEUTROPHIL% 73.2 % (40-75); PLATELET COUNT 172 X10e3 (140-420); RED BLOOD COUNT 3.75 X10e (3.90-5.30); RED CELL DISTRIBUTION WIDTH 18.7 % (11.0-15.5); WHITE BLOOD COUNT 9.8 X10e3 (4.0-10.5)
[2017-02-08 17:19] LABS: DIFF IND NO
[2017-02-08] MEDS ORDERED: ALPHA LIPOIC A200 M1 PO (21:00)
[2017-02-09 06:14] LABS: HEMATOCRIT 31.5 % (35.0-45.0); HEMOGLOBIN 9.9 gm/dL (12.0-16.0); MEAN CELL VOLUME 89.8 FL (83-96); MEAN CORPUSCULAR HEMOGLOBIN 28.4 PG (28-34); MEAN CORPUSCULAR HGB CONC 31.6 g/dL (30-36); RED BLOOD COUNT 3.5 X10e (3.90-5.30); RED CELL DISTRIBUTION WIDTH 18.2 % (11.0-15.5); WHITE BLOOD COUNT 8.7 X10e3 (4.0-10.5)
[2017-02-09 07:11] LABS: BUN/CREATININE RATIO 17.33; CALCIUM SERUM 7.8 mg/dL (8.4-10.2); GLOM FILT RATE Estimated 17.8 mL/min (>60); POTASSIUM 4.3 mmol/L (3.5-5.1)
[2017-02-10 06:13] LABS: HEMOGLOBIN 10.1 gm/dL (12.0-16.0); MEAN CELL VOLUME 89.7 FL (83-96); MEAN CORPUSCULAR HEMOGLOBIN 28.3 PG (28-34); MEAN CORPUSCULAR HGB CONC 31.6 g/dL (30-36); MEAN PLATELET VOLUME 9.7 FL (6.5-11.5); RED BLOOD COUNT 3.57 X10e (3.90-5.30); RED CELL DISTRIBUTION WIDTH 18.4 % (11.0-15.5); WHITE BLOOD COUNT 9.9 X10e3 (4.0-10.5)
[2017-02-10 07:13] LABS: BUN/CREATININE RATIO 14.81; CALCIUM SERUM 8.1 mg/dL (8.4-10.2); CREATININE SERUM 2.7 mg/dL (0.6-1.4); GLOM FILT RATE Estimated 20.2 mL/min (>60); MAGNESIUM 1.1 mg/dL (1.6-3.0); PHOSPHOROUS 5.1 mg/dL (2.5-4.6); POTASSIUM 4.1 mmol/L (3.5-5.1)
[2017-02-11 05:36] LABS: HEMATOCRIT 29.4 % (35.0-45.0); HEMOGLOBIN 9.2 gm/dL (12.0-16.0); MEAN CELL VOLUME 90.7 FL (83-96); MEAN CORPUSCULAR HEMOGLOBIN 28.5 PG (28-34); MEAN CORPUSCULAR HGB CONC 31.4 g/dL (30-36); MEAN PLATELET VOLUME 9.3 FL (6.5-11.5); RED BLOOD COUNT 3.24 X10e (3.90-5.30); RED CELL DISTRIBUTION WIDTH 18.3 % (11.0-15.5); WHITE BLOOD COUNT 7.1 X10e3 (4.0-10.5)
[2017-02-11 06:22] LABS: BUN/CREATININE RATIO 13.44; CALCIUM SERUM 7.5 mg/dL (8.4-10.2); CREATININE SERUM 2.9 mg/dL (0.6-1.4); GLOM FILT RATE Estimated 18.5 mL/min (>60); POTASSIUM 3.6 mmol/L (3.5-5.1)
[2017-02-12 07:12] LABS: BUN/CREATININE RATIO 12.96; CREATININE SERUM 2.7 mg/dL (0.6-1.4); GLOM FILT RATE Estimated 20.2 mL/min (>60); PHOSPHOROUS 5.5 mg/dL (2.5-4.6); POTASSIUM 3.9 mmol/L (3.5-5.1)
[2017-02-12] MEDS ORDERED: CLEOCIN150 M1 PO (18:11)
[2017-02-12] MEDS ORDERED: MAG-OXIDE400 MG PO (18:11)
[2017-02-12] MEDS ORDERED: BENZONATATE PO (18:12)
[2017-02-12] MEDS ORDERED: SILVADENE TOP (18:17)
[2017-02-12] MEDS ORDERED: PROBIOTIC250 MG PO (18:19)
[2017-02-12] MEDS ORDERED: ACETAMINOPHEN650 M1 PO (19:13)
[2017-02-12] MEDS ORDERED: SODIUM BICARBO650 MG PO (19:14)
== END 2017-02-12 19:00 | disposition home or self-care (01) | DRG 638 ==
LOC: CED 13:53 → C2A 18:46 → CED 19:03 → C2A 19:03
PROVIDERS: Emergency Medicine; Internal Medicine; Physician Assistant Medical
PROC: 02HV33Z Insertion of Infusion Device into Superior Vena Cava, Percutaneous Approach (ICD-10-PCS; principal; 2017-02-08)
DX: E11.628 Type 2 diabetes mellitus with other skin complications (principal); E87.2 Acidosis; L97.519 Non-pressure chronic ulcer of other part of right foot with unspecified severity; N17.9 Acute kidney failure, unspecified; E11.621 Type 2 diabetes mellitus with foot ulcer; N18.4 Chronic kidney disease, stage 4 (severe); E11.21 Type 2 diabetes mellitus with diabetic nephropathy; L03.115 Cellulitis of right lower limb; Z68.41 Body mass index [BMI] 40.0-44.9, adult; E11.610 Type 2 diabetes mellitus with diabetic neuropathic arthropathy; E11.22 Type 2 diabetes mellitus with diabetic chronic kidney disease; J44.9 Chronic obstructive pulmonary disease, unspecified; D64.89 Other specified anemias; F41.9 Anxiety disorder, unspecified; F32.9 Major depressive disorder, single episode, unspecified; J45.909 Unspecified asthma, uncomplicated; I12.9 Hypertensive chronic kidney disease with stage 1 through stage 4 chronic kidney disease, or unspecified chronic kidney disease; G47.33 Obstructive sleep apnea (adult) (pediatric); E66.01 Morbid (severe) obesity due to excess calories; Z90.710 Acquired absence of both cervix and uterus; Z90.49 Acquired absence of other specified parts of digestive tract; Z88.2 Allergy status to sulfonamides; K21.9 Gastro-esophageal reflux disease without esophagitis; D63.1 Anemia in chronic kidney disease; B95.62 Methicillin resistant Staphylococcus aureus infection as the cause of diseases classified elsewhere
CPT/HCPCS: 36415; 71010; 71020; 73700; 73718; 80048; 80076; 82550; 82728; 82947; 83540; 83735; 84100; 84550; 85025; 85027; 85652; 86140; 87040; 87070; 87077; 87186; 87205; 94640; 94760; 99285; J1170; J1815; J2020; J2543; J2550

== ENCOUNTER → 2017-02-22 | Outpatient (CLI) | payer OTHER ==
[~2017-02-22] MED LIST changes: +ACETAMINOPHEN650 M1 PO; +ALPHA LIPOIC A200 M1 PO; +BREO ELLIPTA 11 EACH INH; +CITALOPRAM HBR40 MG PO; +CLEOCIN150 M1 PO; +MAG-OXIDE400 MG PO; +NYSTATIN1 EAC1 MC; +PROBIOTIC250 MG PO; +SILVADENE TOP; +SODIUM BICARBO650 MG PO
[2017-02-22 13:28] LABS: BUN/CREATININE RATIO 15.16; CALCIUM SERUM 8.3 mg/dL (8.4-10.2); CREATININE SERUM 3.1 mg/dL (0.6-1.4); GLOM FILT RATE Estimated 17.1 mL/min (>60); POTASSIUM 4.3 mmol/L (3.5-5.1)
== END | disposition home or self-care (01) ==
LOC: SLAB 12:44
PROVIDERS: Internal Medicine Nephrology
DX: N18.3 Chronic kidney disease, stage 3 (moderate) (principal)
CPT/HCPCS: 36415; 80048

== ENCOUNTER 2017-03-10 08:27 | Inpatient (IN) | payer OTHER ==
--- NOTE | ~2017-03-10 | HP ---
Unit #: [id number] #: [id number] Patient: CELSO VALDEZ [id number] [address] [address] [id number] I MR#: [id number] NAME: CELSO VALDEZ ROOM: 312 Age: 46 Sex: F Admission Date: 03/10/2017 : 1970 Attending Physician: Geovany Dunn M.D. Primary Care Physician: Palak Cano M.D. HISTORY AND PHYSICAL HISTORY OF PRESENT ILLNESS The patient is a 46-year-old white female with a history of hypertension, COPD, chronic anemia, type 2 diabetes mellitus, major depressive disorder, generalized anxiety disorder, asthma, gastroparesis, chronic kidney disease stage 4, obstructive sleep apnea syndrome, and morbid obesity, who presented to the emergency room with two days of nausea, vomiting, and diarrhea. Here she was afebrile and hypertensive. White count was 11.3 and hemoglobin was 10.9. BUN 34 and creatinine 2.3 and GFR 29. Amylase and lipase were normal. CT scan showed no active disease, and the patient is admitted for further evaluation and therapy. She states she has had no fever and no ill contacts. She just started having diarrhea after she arrived here in the emergency room. They had given her multiple medicines including Phenergan, Imodium, and Bentyl, but she threw all that up. She is at high risk of worsening renal function and is unable keep down even sips of clear liquids and is being admitted for hydration and followup. She does have some abdominal pain, but it is quite nonspecific and diffuse. PAST MEDICAL HISTORY 1. Hypertension. 2. Chronic obstructive pulmonary disease. 3. Chronic anemia. 4. Type 2 diabetes mellitus. 5. Depression. 6. Anxiety. 7. Asthma. 8. Gastroparesis. 9. Chronic kidney disease. 10. Obstructive sleep apnea syndrome. 11. Morbid obesity. 12. Necrotizing fasciitis right lower extremity, status post debridement, currently has three small wounds, one on her heel on the bottom and two on the posterior aspect of her right calf and ankle. None of these appear to be infected. They are very small and appear to be very superficial. PAST SURGICAL HISTORY 1. Right third toe metatarsal joint disarticulation. 2. Debridement right lower extremity wound. 3. Hysterectomy. 4. Cholecystectomy. ALLERGIES Hydrocodone, tetracycline, Bactrim, adhesive tape, Zofran, vancomycin, and Levaquin. Unit #: [id number] #: [id number] Patient: CELSO VALDEZ MEDICATIONS Medications prior to admission are unknown. Although there is a huge list, we do not have any doses or frequencies. SOCIAL HISTORY She is a prior smoker. No alcohol or street drug use. REVIEW OF SYSTEMS Otherwise unremarkable. PHYSICAL EXAMINATION GENERAL: She is awake, alert, oriented x3, and in no acute distress. VITAL SIGNS: Afebrile, pulse 88, respirations 18, blood pressure 182/118, last one was 179/98, and O2 saturation on room air is 96-98%. HEENT: Unremarkable. NECK: Supple without JVD, bruits, adenopathy, or thyromegaly. CHEST: Clear to auscultation. HEART: Regular rate and rhythm without any murmurs, rubs, or gallops. ABDOMEN: Soft, nondistended, and diffusely tender, without any guarding or rebound tenderness. Positive bowel sounds and no hepatosplenomegaly. EXTREMITIES: No clubbing, cyanosis, or edema. Right lower extremity wounds are as stated above. GENITOURINARY/RECTAL: Deferred. NEUROLOGIC: Grossly intact. DIAGNOSTIC STUDIES LABORATORY: White count 11.3 with a left shift, hemoglobin 10.9 with normal indices, and platelets 273,000. CMP is normal except for a CO2 of 19, glucose 250, BUN 34, creatinine 2.3, GFR 24.5, alkaline phosphatase 170, and albumin 3.1. Amylase and lipase are normal. IMAGING: CT scan of the abdomen and pelvis reportedly shows no active disease. CARDIOLOGY: EKG sinus rhythm with single PVC. IMPRESSION 1. Probable gastroenteritis. 2. Nausea, vomiting, diarrhea, and abdominal pain. 3. Hypertension. 4. Hyperglycemia. 5. Chronic obstructive pulmonary disease. 6. Chronic anemia. 7. Type 2 diabetes mellitus. 8. Major depressive disorder. 9. Generalize anxiety disorder. 10. Asthma. 11. Gastroparesis. 12. Chronic kidney disease stage 4 which appears to be stable. 13. Obstructive sleep apnea syndrome. 14. Morbid obesity. PLAN Nothing by mouth, IV fluids, IV proton pump inhibitors, and IV Phenergan. Accu-Cheks a.c. and at bedtime with low-dose sliding scale insulin. Lovenox dose adjusted for renal function for DVT prophylaxis. Follow labs. IV hydralazine p.r.n. Clarify home medications. Morphine p.r.n. Unit #: [id number] #: [id number] Patient: CELSO VALDEZ for abdominal pain. She will need an endoscopy if it persists more than 24 hours more. Further evaluation pending results of the above. Dictated by Clarence Hooks/cory TD: 03/11/2017 14:01 JOB #: [id number] HISTORY AND PHYSICAL Page 1 of 1 X Geovany Dunn MD X HISTORY AND PHYSICAL
--- NOTE | ~2017-03-10 | CO ---
Unit #: [id number] #: [id number] Patient: CELSO VALDEZ [id number] [address] [address] [id number] I MR#: [id number] NAME: CELSO VALDEZ ROOM: 312 Age: 46 Sex: F Admission Date: 03/10/2017 : 1970 Attending Physician: Naila Luque M.D. Primary Care Physician: Palak Cano M.D. Consultation Date: 03/12/2017 CONSULTATION REPORT REASON FOR CONSULTATION Anemia. Thank you very much for asking us to see Ms. Valdez. HISTORY OF PRESENT ILLNESS She is a 46-year-old white female. She has a history of hypertension, COPD, chronic anemia, diabetes, depression, anxiety, gastroparesis, and stage 4 kidney disease. She was admitted to the emergency room with nausea and vomiting. She had a CT scan performed at that time, which showed no active disease. It is notable that 3 months ago, the patient had upper endoscopy by Dr. 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 Over the course of her hospitalization, her hemoglobin has decreased from 10.9 to 8.8 in 48 hours. She denies any GI bleeding from below and has had no melena and she states with nausea and vomiting, she did see some bright red blood in her emesis. This has not continued. She is having less pain and discomfort and less nausea. She presents at this time for further evaluation. She has not had a colonoscopy for many years. PAST MEDICAL HISTORY Hypertension, anemia, COPD, depression, diabetes, asthma, anxiety, gastroparesis, renal insufficiency, sleep apnea, morbid obesity, necrotizing fasciitis of right leg, requiring debridement, hysterectomy and cholecystectomy. ALLERGIES Hydrocodone, tetracycline, Bactrim, adhesive tape, Zofran, vancomycin, and Levaquin. MEDICATIONS Please see med rec sheet. SOCIAL HISTORY No tobacco or alcohol use currently. REVIEW OF SYSTEMS Negative except for above. IMMUNIZATION STATUS Unknown. FAMILY HISTORY Noncontributory. Unit #: [id number] #: [id number] Patient: CELSO VALDEZ PHYSICAL EXAMINATION GENERAL: Well-developed, well-nourished white female, in no apparent distress. Awake, alert and oriented. VITAL SIGNS: Temperature is 97.5, pulse 85, respirations 20, blood pressure is 110/65. NECK: Supple. No thyromegaly or adenopathy. BACK: No CVA or spinous tenderness. ABDOMEN: Flat, soft, nontender. EXTREMITIES: No calf tenderness. DIAGNOSTIC STUDIES LABORATORY RESULTS: Reveal the patient to have a CMP. IMPRESSION A 46-year-old white female with nausea and vomiting and some bright red blood in her emesis. We feel she needs maximal upper GI prophylaxis. Will discuss all with Dr. Glover and proceed accordingly. SUNG/donte TD: 03/12/2017 22:50 JOB #: [id number] Dictated by... Clarence Montague/caridad TD: 04/10/2017 18:33 JOB #: [id number] CONSULTATION REPORT Page 1 of 1 X Ramiro August MD CONSULTATION REPORT
--- NOTE | ~2017-03-10 | CO ---
Unit #: [id number] #: [id number] Patient: CELSO VALDEZ [id number] [address] [address] [id number] I MR#: [id number] NAME: CELSO VALDEZ ROOM: 312 Age: 46 Sex: F Admission Date: 03/10/2017 : 1970 Attending Physician: Naila Luque M.D. Primary Care Physician: Palak Cano M.D. Consultation Date: 03/12/2017 CONSULTATION REPORT REASON FOR CONSULTATION Anemia. Thank you very much for asking us to see Ms. Valdez. HISTORY OF PRESENT ILLNESS She is 46-year-old white female with multiple medical problems. She was admitted with nausea and vomiting, and subsequently was found to have a drop in hemoglobin from 10.9 to 8.8. She denies any GI bleeding. She denies any melena. She states that she has had a little bit of bright red blood in her emesis. This is stopped. Her CT scan on admission showed no active disease. Her last upper endoscopy was in 11/2016 and showed a large bezoar. Her last colonoscopy was several years ago. Her weight has been stable. Appetite has been good. She presents at this time for further evaluation and treatment. PAST MEDICAL HISTORY Hypertension, COPD, anemia, diabetes, anxiety, depression, gastroparesis, asthma, sleep apnea, chronic renal insufficiency, morbid obesity, necrotizing fasciitis of the right lower extremity which required debridement, hysterectomy, cholecystectomy. ALLERGIES Hydrocodone, tetracyclines, Bactrim, Zofran, vancomycin, Levaquin. MEDICATIONS Please see med rec sheet. SOCIAL HISTORY No tobacco or alcohol use currently. REVIEW OF SYSTEMS Negative except for above. IMMUNIZATION STATUS Unknown. FAMILY HISTORY Noncontributory. PHYSICAL EXAMINATION VITAL SIGNS: Afebrile. Vital signs stable. GENERAL: Awake, alert, and oriented x3. Unit #: [id number] #: [id number] Patient: CELSO VALDEZ NECK: Supple. No thyromegaly or adenopathy. BACK: No CVA or spinous tenderness. CHEST: Breath sounds bilaterally to auscultation clear. ABDOMEN: Flat, soft, nontender. DIAGNOSTIC STUDIES LABORATORY RESULTS: Reveal the patient to have a glucose of 102, BUN 46, creatinine 2.6. Liver function studies were normal. PT/PTT is normal. White count 8.2, hemoglobin 8.8, hematocrit 27.8, MCV is 92.1. IMPRESSION A 46-year-old white female with anemia. We feel she needs upper and lower endoscopy for further evaluation. All the risks and benefits of esophagogastroduodenoscopy and colonoscopy have been fully explained to the patient in detail including the risk of bleeding, perforation, emergency surgery, , and other risks. She understands completely and requests to proceed. Dictated by... Clarence Montague/donte TD: 03/12/2017 18:29 JOB #: [id number] CC: [facility] CONSULTATION REPORT Page 1 of 1 X Ramiro August MD X CONSULTATION REPORT
--- NOTE | ~2017-03-10 | CO ---
Unit #: [id number] #: [id number] Patient: CELSO VALDEZ [id number] [address] [address] [id number] I MR#: [id number] NAME: CELSO VALDEZ ROOM: 312 Age: 46 Sex: F Admission Date: 03/10/2017 : 1970 Attending Physician: Geovany Dunn M.D. Primary Care Physician: Palak Cano M.D. Consultation Date: 03/12/2017 CONSULTATION REPORT CONSULTING SERVICE Nephrology. REASON FOR CONSULTATION Chronic kidney disease, stage 4. HISTORY OF PRESENT ILLNESS The patient is a 46-year-old white female with history of chronic kidney disease, stage 4; hypertension; diabetes mellitus type 2; diabetic gastroparesis; obstructive sleep apnea; who presented to the emergency room a couple of days ago with nausea and vomiting over a 48-hour period. Upon arrival, she developed some watery diarrhea. She has been unable to tolerate much eat or drink orally. Her initial serum creatinine was 2.3, slightly lower than her recent baseline, was 2.7, 3.2 during recent admission on 02/08 through 02/12 for cellulitis of right lower extremity. She also has some ulcerations, that foot had been slowly healing. Today, creatinine is 2.6. She is on IV fluids and her torsemide is on hold. She denies any history of congestive heart failure, but takes diuretics for intermittent lower extremity edema, none recently. She denies any dyspnea. The patient did actually require hemodialysis for a couple of months in the setting of acute kidney injury, partially recovering renal function in December of this year. She denies any dysuria, hematuria, or hesitancy. She denies any recent anti-inflammatory use. PAST MEDICAL HISTORY 1. Chronic kidney disease, stage 4, with recent baseline creatinine of around 2.7, 2.9, as well as acute kidney injury, requiring dialysis for a couple of months through 12/2016 before partial recovery. 2. Hypertension. 3. Diabetes mellitus type 2. 4. Diabetic gastroparesis. 5. COPD. 6. Anemia of chronic kidney disease. 7. Anxiety and depression. 8. Obstructive sleep apnea. 9. Necrotizing fasciitis of right lower extremity, status post debridement, with slowly healing ulcerations on the heel, ankle, and calf. 10. Metabolic acidosis. 11. Gastroesophageal reflux disease. 12. Diabetic peripheral neuropathy. 13. Dyslipidemia. PAST SURGICAL HISTORY 1. Right third toe metatarsal joint disarticulation. Unit #: [id number] #: [id number] Patient: CELSO VALDEZ 2. Debridement of right lower extremity wound. 3. Hysterectomy. 4. Cholecystectomy. FAMILY HISTORY No chronic kidney disease. ALLERGIES Hydrocodone, tetracycline, Bactrim, Zofran, vancomycin, and Levaquin. HOME MEDICATIONS 1. Calcium plus vitamin D3 one tablet p.o. daily. 2. Vitamin B12 500 mcg p.o. daily. 3. Protonix 40 mg p.o. daily. 4. Hydralazine 50 mg p.o. t.i.d. 5. Calcium acetate 667 mg p.o. daily. 6. Lipitor 40 mg p.o. nightly. 7. Gabapentin 300 mg p.o. daily. 8. Lactobacillus. 9. Claritin 10 mg p.o. daily. 10. Synthroid 0.075 mg p.o. daily. 11. Desvenlafaxine 50 mg p.o. daily. 12. Singulair 10 mg p.o. daily. 13. Reglan 10 mg p.o. t.i.d. 14. NovoLog insulin 20 units subcutaneously three times daily. 15. Tresiba insulin 30 units subcutaneously b.i.d. 16. Topiramate 25 mg p.o. daily. 17. Torsemide 100 mg p.o. daily. 18. Vascepa 1 g p.o. daily. 19. Clindamycin 150 mg p.o. t.i.d. 20. Magnesium oxide. 21. Tessalon Perles. 22. Silvadene. 23. Tylenol as needed for pain. 24. Sodium bicarbonate 650 mg p.o. b.i.d. REVIEW OF SYSTEMS GENERAL: No fevers, chills, or night sweats. HEENT: No vision changes, congestion, or dysphagia. CARDIOVASCULAR: No chest pain or palpitations. No recent lower extremity swelling. RESPIRATORY: No shortness of breath or cough. GI: Nausea, vomiting, diarrhea. No melena. GENITOURINARY: No dysuria, hematuria, or hesitancy. MUSCULOSKELETAL: No joint pain, redness, or swelling. HEMATOLOGIC: No bruising or bleeding. DERMATOLOGIC: Reports healing ulcerations of right lower extremity with no purulent drainage. PSYCHIATRIC: History of anxiety and depression. NEUROLOGIC: No headaches, dizziness, seizures, or syncope. PHYSICAL EXAMINATION VITAL SIGNS: Temperature 97.8, blood pressure 136/75, heart rate 77, and respirations 20. GENERAL: The patient is a pleasant, obese, middle-aged white female, in no acute distress. He is comfortable and alert. HEENT: Oropharynx is clear. Moist mucous membranes. NECK: Supple. No JVD. LUNGS: Clear to auscultation bilaterally. No rales or rhonchi. CARDIAC: Regular rate and rhythm. No murmurs. ABDOMEN: Soft, nontender, and nondistended. VASCULAR: Distal right lower extremity is wrapped from the knee down with Eliezer bandage. No hip edema. No left lower extremity edema. 2+ radial pulses. DERMATOLOGIC: Undressed right lower extremity wound. No visible rash elsewhere. MUSCULOSKELETAL: No joint warmth or erythema. Unit #: [id number] #: [id number] Patient: CELSO VALDEZ NEUROLOGIC: Oriented to person, place and time. Speech is normal. LABORATORY DATA WBC 8.2, hemoglobin 8.8, and platelets 232. Sodium 137, potassium 3.2, chloride 113, bicarb 19, BUN 46, creatinine 2.6, glucose 102, and calcium 7.9. Urinalysis from 03/10 shows 3+ protein, 1000 glucose, 2+ blood, nitrites and leukocyte esterase negative. IMAGING CT abdomen and pelvis without contrast from March 10 shows no kidney stones, but bilateral nonspecific perinephric stranding, unchanged from 11/2016. No evidence of bowel obstruction or drainable fluid collection or free air. Some degenerative changes of the lumbar spine and vascular calcifications present. ASSESSMENT 1. Chronic kidney disease, stage 4, due to diabetic nephropathy, with acute kidney injury few months ago that require dialysis for about 2 months through 12/2016 before partial recovery of renal function. Creatinine is stable at 2.6, was lower than usual of 2.3 upon admission. Her baseline recently is in the high 2's. Agree with current IV fluid due to her nausea, vomiting, diarrhea, and poor oral intake. Urinalysis notable for proteinuria and some microscopic hematuria, but no evidence of urinary tract infection. 2. Nausea, vomiting, and diarrhea. The nausea and vomiting are present prior to admission, with onset of diarrhea in the ER. This could represent viral gastroenteritis as well as diabetic gastroparesis with regard to the nausea component. She is on liquid diet currently, but taken in very little. On antiemetics. 3. Hypertension. Blood pressure is controlled. On hydralazine, which appears to be her only antihypertensive that she takes at home. 4. Metabolic acidosis, related to her advanced chronic kidney disease as well as Topamax use. Bicarbonate is a bit low at 19. She takes sodium bicarbonate supplementation 650 b.i.d. 5. Anemia of chronic kidney disease. Hemoglobin is 8.5. We will check iron levels. 6. Diabetes mellitus type 2, insulin dependant. 7. Diabetic gastroparesis. 8. Diabetic peripheral neuropathy. 9. History of intermittent chronic bilateral lower extremity edema. No swelling present currently. Torsemide is on hold. Lungs are clear. Denies history of congestive heart failure. 10. History of right lower extremity necrotizing fasciitis and several areas of ulceration, which are reportedly healing. PLAN 1. Agree with normal saline at 100 mL per hour. 2. Torsemide on hold. 3. Replaced potassium, the patient states can tolerate oral KCL. 4. Increase sodium bicarbonate 650 mg p.o. t.i.d. 5. Avoid IV contrast. 6. Renally dose medications for GFR of approximately 20 to 25 mL per minute. Thank you for involving me in the patient's care. We will follow along. Dictated by... Tim Rock M.D. Unit #: [id number] #: [id number] Patient: CELSO VALDEZ NEHEMIAH/donte TD: 03/13/2017 08:09 JOB #: [id number] CONSULTATION REPORT Page 1 of 1 X X CONSULTATION REPORT
--- NOTE | ~2017-03-10 | BMI ---
[facility] Nutrition Therapy DATE: 03/12/17 Patient: CELSO VALDEZ Physician: LAVONNE Address: [address] [place] [address] Room/Bed: [address] [place] [address], Zip: [place] [address] Admit Date: 03/10/17 Date of : [birth year] Height: 5 4 Weight: 240 108.9 HIGH BMI NOTE: ANTHROPOMETRICS: HT: 5'4" WT: 108.9 KG BMI: 41.2 DIET: CLEAR LIQUID RECOMMENDATIONS: 1. ONCE MEDICALLY FEASIBLE, ADVANCE THE PT TO A HEART HEALTHY DIET IN ORDER TO PROMOTE GRADUAL WEIGHT LOSS TOWARDS A HEALTHY BMI. Respectfully, EMILY RIVERA RD, LD Food and Nutritional Services [facility] cc: client file
--- NOTE | ~2017-03-10 | CT4 ---
[facility] A Service of [facility] & [facility] RADIOLOGY TEXT RESULTS PATIENT: CELSO VALDEZ LOCATION: C3A 312-01 : 68 UNIT #: [id number] AGE: [address]: Geovany Dunn MD SEX: F ORDER DR: [id number] [facility] [address] [facility]. [place], [place] [address] [id number] I MR#: [id number] Acc #: [id number] NAME: CELSO VALDEZ : 1970 SEX: F STUDY DATE/TIME: 03/10/2017 9:27 UNIT: C4 ROOM: [facility] STUDY DESCRIPTION: CT Abd and Pelv Wo Cont Attending Physician: Geovany Dunn M.D. Ordering Physician: Ellen Mirza M.D. Primary Care Physician: Palak Cano M.D. MEDICAL IMAGING REPORT This report is preliminary unless electronic signature is present EXAM Abdomen and pelvis CT without contrast. HISTORY 46-year-old female with generalized abdominal pain, nausea and vomiting since 03/08/2017. History of MRSA right foot. History of essential hypertension, COPD, pseudo-seizures and diabetes. Patient has had a previous hysterectomy and cholecystectomy. Prior section. Previously removed ovarian tumor per patient. TECHNIQUE CT abdomen and pelvis performed without IV or oral contrast media using a urinary tract stone protocol. Lack of intravenous and oral contrast media limits evaluation for pathology other than urinary tract calculus disease. This CT exam was performed with one or more of the following radiation dose reduction techniques: automatic exposure control, adjustment of mA and/or kV according to patient size, and iterative reconstruction. COMPARISON The comparison study is from 11/24/2016. On comparison to prior, airspace disease previously noted at lung bases has essentially resolved. FINDINGS CT ABDOMEN: The patient has had a previous cholecystectomy. The noncontrast liver, spleen, pancreas, adrenal glands are unremarkable. There is bilateral perinephric stranding. No intrarenal calculus is seen and there is no hydronephrosis. No hydroureter or ureteral calculus. Urinary bladder unremarkable and partially decompressed. Evaluation of the remainder of the pelvis shows post hysterectomy changes. Vascular calcification pattern consistent with diabetes. Small STS. [facility] A Service of [facility] RADIOLOGY TEXT RESULTS PATIENT: CELSO VALDEZ LOCATION: C3A 312-01 : 68 UNIT #: [id number] AGE: [address]: Geovany Dunn MD SEX: F ORDER DR: fat-containing hernia in the anterior lower abdominal wall near midline consistent with a small incisional hernia. There is no evidence for bowel obstruction. There is no free intraperitoneal air. No drainable fluid collection is suspected. On comparison to prior study, the perinephric stranding is not changed. Degenerative disc disease noted at L5-S1 with subtle degenerative anterolisthesis of L5 on S1, endplate spondylosis and vacuum disc formation. No evidence for abdominal aortic aneurysm. Calcification of the distal abdominal aorta and the proximal iliacs. The appendix is not definitely seen on the study or the prior study. IMPRESSION 1. No evidence for urinary tract calculus disease. Again, there is bilateral perinephric stranding nonspecific and not changed from 11/24/2016. 2. Nothing to suggest bowel obstruction or drainable fluid collection or free intraperitoneal air. The appendix is not seen. It was also not seen on the study from 11/24/2016. No secondary signs of inflammation are appreciated in the right lower quadrant. 3. Degenerative changes in the lumbar spine. 4. The patient is post cholecystectomy and hysterectomy. 5. Vascular calcifications are present including pattern consistent with diabetes. 6. Small fat-containing incisional hernia lower anterior abdominal wall not changed. No suggestion of bowel obstruction. 7. The study performed as a urinary tract stone protocol and is therefore limited for evaluation for pathology other than urinary tract calculus disease. Dictated by... Janeth Jimenez M.D. THIS IS AN ELECTRONICALLY VERIFIED REPORT Janeth Jimenez M.D. at 03/11/2017 7:24 AM ANDREINA/dereck TD: 03/10/2017 19:22 JOB #: [id number] MEDICAL IMAGING REPORT Page 1 of 1 COPY
--- NOTE | ~2017-03-10 | OR ---
Unit #: [id number] #: [id number] Patient: CELSO VALDEZ [id number] [address] [place], [place] [address] [id number] I MR#: [id number] NAME: CELSO VALDEZ ROOM: 312 Date of Procedure: 03/13/2017 Admission Date: 03/10/2017 Surgeon: Kyle Hill M.D. : 1970 Attending Physician: Naila Luque M.D. Primary Care Physician: Palak Cano M.D. OPERATIVE REPORT PREOPERATIVE DIAGNOSES Gastrointestinal bleed, nausea, and vomiting. POSTOPERATIVE DIAGNOSES Mild gastritis, gastric polyp, normal colon and rectum. PROCEDURES PERFORMED 1. Esophagogastroduodenoscopy to third portion of the duodenum with biopsy of gastric polyp and CLOtesting. 2. Colonoscopy to cecum. ANESTHESIA Monitored anesthesia. INDICATIONS FOR PROCEDURE Ms. Valdez is a 46-year-old female with chronic medical issues. She has a known history of gastroparesis. She has had a previous cholecystectomy. She presented with nausea, vomiting, and was noted to have a fall in her hemoglobin of 2 g. DESCRIPTION OF PROCEDURE The patient was transported from hospital room to the endoscopy suite where after appropriate monitoring and positioning, a bite block was placed and she was sedated. Endoscope was passed through the oral cavity in the esophagus. Under direct vision, we passed through the esophagus and into the stomach, insufflated the stomach, and passed through the pylorus down the third portion of the duodenum. Duodenum and duodenal bulb were normal. In the stomach, she had some mild gastritis particularly in the antrum, and there were 2 small gastric polyps that were biopsied using the cold biopsy forceps. In retroflexing the scope above the incisura, no other findings in the upper fundus or cardia were noted. It should be noted the pylorus was widely patent with good distensibility and no evidence of gastric outlet obstruction. As I came back in a retrograde fashion, the GE junction was well demarcated at 40 cm. No esophagitis. No Rogers mucosa. No hiatal hernia. Esophageal mucosa was normal throughout and the larynx was normal. After completion of the upper scope, the patient was repositioned. On rectal examination, there was no significant anorectal pathology and digital exam was normal. Colonoscope was passed through the anal verge and throughout the extent of the colon to the cecum where the appendiceal orifice and ileocecal valve were photodocumented. On antegrade and retrograde visualization, no abnormalities were noted throughout. In particular, there was some Unit #: [id number] #: [id number] Patient: CELSO VALDEZ residual loose stool, which was flushed and aspirated, but there was no evidence of any blood in any portion of the endoscopic evaluation. The patient tolerated the procedure well and was transported to recovery in stable condition. We will await the biopsies and CLOtest. The patient was already on Reglan to treat her gastroparesis. Re-evaluation of her x-ray showed no evidence of bowel obstruction. Dictated by... Clarence Landa/donte TD: 03/14/2017 06:38 JOB #: [id number] OPERATIVE REPORT Page 1 of 1 X Kyle Hill MD X PROCEDURE OPERATIVE NOTE
--- NOTE | ~2017-03-10 | DS ---
Unit #: [id number] #: [id number] Patient: CELSO VALDEZ [id number] [address] [address] [id number] I MR#: [id number] NAME: CELSO VALDEZ ROOM: 312 Age: 46 Sex: F Admission Date: 03/10/2017 : 1970 Discharge Date: 03/13/2017 Attending Physician: Naila Luque M.D. Primary Care Physician: Palak Cano M.D. DISCHARGE SUMMARY FINAL DIAGNOSES 1. Nausea, vomiting which is improved. 2. Status post esophagogastroduodenoscopy which shows mild gastritis, gastric polyp, biopsy done. 3. Status post colonoscopy which is normal. 4. History of severe gastroparesis. 5. Hypokalemia, which is improved. 6. Anemia. 7. Chronic kidney disease, off hemodialysis. 8. Hypertension, which is stable. ADMITTING PHYSICIAN Dr. Geovany Dunn. DISCHARGING PHYSICIAN Dr. Naila Luque. DISCHARGE MEDICATIONS 1. Sodium bicarbonate 650 mg three times a day. 2. Gabapentin 300 mg daily. 3. Trokendi 25 mg daily. 4. Celexa 40 mg daily. 5. Breo continue home dose. 6. Torsemide is on hold at this time. 7. Lipitor 40 mg daily. 8. Hydralazine 75 mg b.i.d. 9. Tresiba 38 units subcutaneous b.i.d. This is home dose. 10. Metoclopramide 10 mg p.o. before meals and at bedtime. 11. Singulair 10 mg daily. 12. Protonix 40 mg daily. 13. Calcium. 14. Synthroid 75 mcg daily. 15. Vitamin B12 500 mcg daily. CONSULTATION DURING HOSPITALIZATION [facility]. PROCEDURE PERFORMED EGD and colonoscopy as above. Findings are as above. DIAGNOSTIC STUDIES LABORATORY: Lab workup on discharge: Sodium 139, potassium 3.7, chloride 113, bicarbonate 18, BUN 39, creatinine 2.1. WBC 5.1, hemoglobin 9.1, hematocrit 28.4, and platelet count 189,000. Unit #: [id number] #: [id number] Patient: CELSO VALDEZ HOSPITAL COURSE A 46-year-old female who has had multiple medical problems, who has had multiple admissions, came because of nausea, vomiting, diarrhea, and abdominal pain. Possible gastroenteritis possibly secondary to gastroparesis. The patient had EGD and colonoscopy done. Findings are as above. She received IV antiemetic during hospitalization and she has improved. She has tolerated lunch today. Will be discharged home if she tolerates her dinner also. Patient was also seen by nephrology because of her chronic kidney disease. She seems to be stable. Her sodium bicarb has been increased to 650 mg t.i.d. Her Reglan has been increased to four times a day. Patient is being discharged home in stable condition. PHYSICAL EXAMINATION On discharge: VITAL SIGNS: Blood pressure is 152/75, respiratory rate 18, pulse is 101, temperature 97.6, oxygen saturation is 100%. HEENT: Head is normocephalic. CHEST: Fair air entry. No additional sounds. CARDIOVASCULAR: Regular rhythm. DISCHARGE INSTRUCTIONS 1. The patient is being discharged home in stable condition. 2. Followup primary care provider in one week. 3. BMP to be done in one week. 4. Continue followup with nephrology as outpatient. 5. Biopsy results from EGD needs to be followed as outpatient. Dictated by... Naila Luque M.D. Bradley TD: 03/13/2017 18:13 JOB #: [id number] DISCHARGE SUMMARY Page 1 of 1 X Naila Luque MD X DISCHARGE SUMMARY
--- NOTE | ~2017-03-10 | EKG ---
PATIENT: CELSO VALDEZ UNIT #: [id number] Ventricular Rate: 92 BPM Atrial Rate: 92 BPM P-R Interval: 142 ms QRS Duration: 88 ms Q-T Interval: 376 ms QTC Calculation(Bezet): 464 ms P Barrett: 61 degrees Calculated R Barrett: 22 degrees Diagnosis Line: Sinus rhythm with occasional Premature ventricular Diagnosis Line: complexes Diagnosis Line: Poor R wave progression questionable lead position Diagnosis Line: or body habitus Diagnosis Line: Borderline ECG Diagnosis Line: When compared with ECG of 25-DEC-2016 15:12, Diagnosis Line: Premature ventricular complexes are now Present Diagnosis Line: Confirmed by JACEY HEADLEY MD ([id number]) on Diagnosis Line: 03/11/2017 10:04:08 AM INTERPRETING DESEAN FERRERA
[~2017-03-10 08:27] MED LIST changes: -BREO ELLIPTA 11 EACH INH; -CITALOPRAM HBR40 MG PO; -NYSTATIN1 EAC1 MC
[2017-03-10 09:40] LABS: BASOPHIL# 0.1 X10e3 (0-0.3); EOSINOPHIL% 0.1 % (0.0-7.0); HEMATOCRIT 33.9 % (35.0-45.0); HEMOGLOBIN 10.9 gm/dL (12.0-16.0); LYMPHOCYTE# 0.6 X10e3 (1.0-3.5); LYMPHOCYTE% 4.9 % (17.0-45.0); MEAN CELL VOLUME 89.6 FL (83-96); MEAN CORPUSCULAR HEMOGLOBIN 28.9 PG (28-34); MEAN CORPUSCULAR HGB CONC 32.2 g/dL (30-36); MEAN PLATELET VOLUME 8.6 FL (6.5-11.5); MONOCYTE# 1.2 X10e3 (0-1.0); NEUTROPHIL# 9.4 X10e3 (1.5-7.1); PLATELET COUNT 273 X10e3 (140-420); RED BLOOD COUNT 3.79 X10e (3.90-5.30); RED CELL DISTRIBUTION WIDTH 16.9 % (11.0-15.5); WHITE BLOOD COUNT 11.3 X10e3 (4.0-10.5)
[2017-03-10 09:54] LABS: DIFF IND NO
[2017-03-10 10:02] LABS: ALBUMIN SERUM 3.1 g/dL (3.5-5.0); BILIRUBIN, DIRECT 0.1 mg/dL (0.0-0.2); BILIRUBIN,INDIRECT 0.3 mg/dL (0.0-0.9); BILIRUBIN,TOTAL 0.4 mg/dL (0.2-2.0); BUN/CREATININE RATIO 14.78; CALCIUM SERUM 8.9 mg/dL (8.4-10.2); CREATININE SERUM 2.3 mg/dL (0.6-1.4); GLOM FILT RATE Estimated 24.5 mL/min (>60); POTASSIUM 4.1 mmol/L (3.5-5.1); PROTEIN TOTAL SERUM 8.1 g/dL (6.0-8.3)
[2017-03-10 18:39] LABS: URINE SOURCE CLEAN CATCH
[2017-03-10 18:46] LABS: URINE APPEARANCE CLEAR; URINE BILIRUBIN NEG (NEG); URINE BLOOD 2+ (NEG); URINE COLOR YELLOW; URINE GLUCOSE >1000 MG/DL (NEG); URINE KETONE NEG (NEG); URINE LEUKOCYTE ESTERASE NEG (NEG); URINE NITRATE NEG (NEG); URINE PH 6.5 (5-8); URINE PROTEIN 3+ (NEG); URINE SPECIFIC GRAVITY 1.022 (1.003-1.035); URINE UROBILINOGEN 0.2 MG/DL (NEG)
[2017-03-10 18:49] LABS: URINE BACTERIA AUWI NEG (NEGATIVE); URINE SQUAMOUS EPITHELIAL CELL NONE SEEN /[HPF]; UWBCS1 AUWI 0-2 (0-5)
[2017-03-10 18:57] LABS: CULTURE INDICATED? NO
[2017-03-10] MEDS ORDERED: CITALOPRAM HBR40 MG PO (20:29)
[2017-03-10] MEDS ORDERED: BREO ELLIPTA 11 EACH INH (20:44)
[2017-03-11 05:12] LABS: HEMATOCRIT 30.4 % (35.0-45.0); HEMOGLOBIN 9.7 gm/dL (12.0-16.0); MEAN CELL VOLUME 90.1 FL (83-96); MEAN CORPUSCULAR HEMOGLOBIN 28.8 PG (28-34); MEAN PLATELET VOLUME 8.5 FL (6.5-11.5); RED BLOOD COUNT 3.37 X10e (3.90-5.30); RED CELL DISTRIBUTION WIDTH 17.3 % (11.0-15.5); WHITE BLOOD COUNT 10.5 X10e3 (4.0-10.5)
[2017-03-11 05:46] LABS: BUN/CREATININE RATIO 17.6; CALCIUM SERUM 8.7 mg/dL (8.4-10.2); CREATININE SERUM 2.5 mg/dL (0.6-1.4); GLOM FILT RATE Estimated 22.1 mL/min (>60); POTASSIUM 3.8 mmol/L (3.5-5.1)
[2017-03-12 05:34] LABS: HEMATOCRIT 27.8 % (35.0-45.0); HEMOGLOBIN 8.8 gm/dL (12.0-16.0); MEAN CELL VOLUME 92.1 FL (83-96); MEAN CORPUSCULAR HEMOGLOBIN 29.1 PG (28-34); MEAN CORPUSCULAR HGB CONC 31.6 g/dL (30-36); MEAN PLATELET VOLUME 8.4 FL (6.5-11.5); RED BLOOD COUNT 3.02 X10e (3.90-5.30); WHITE BLOOD COUNT 8.2 X10e3 (4.0-10.5)
[2017-03-12 06:23] LABS: BUN/CREATININE RATIO 17.69; CALCIUM SERUM 7.9 mg/dL (8.4-10.2); CREATININE SERUM 2.6 mg/dL (0.6-1.4); GLOM FILT RATE Estimated 21.1 mL/min (>60); POTASSIUM 3.2 mmol/L (3.5-5.1)
[2017-03-13 05:15] LABS: HEMATOCRIT 28.4 % (35.0-45.0); HEMOGLOBIN 9.1 gm/dL (12.0-16.0); MEAN CELL VOLUME 93.9 FL (83-96); MEAN PLATELET VOLUME 8.1 FL (6.5-11.5); RED BLOOD COUNT 3.02 X10e (3.90-5.30); RED CELL DISTRIBUTION WIDTH 17.2 % (11.0-15.5); WHITE BLOOD COUNT 5.1 X10e3 (4.0-10.5)
[2017-03-13 06:15] LABS: BUN/CREATININE RATIO 18.57; CREATININE SERUM 2.1 mg/dL (0.6-1.4); GLOM FILT RATE Estimated 27.3 mL/min (>60); MAGNESIUM 2.1 mg/dL (1.6-3.0); PHOSPHOROUS 3.8 mg/dL (2.5-4.6); POTASSIUM 3.7 mmol/L (3.5-5.1)
[2017-03-13] MEDS ORDERED: SODIUM BICARBO650 MG PO (16:30)
[2017-03-13] MEDS ORDERED: NYSTATIN1 EAC1 MC (16:32)
== END 2017-03-13 18:20 | disposition home or self-care (01) | DRG 74 ==
LOC: CED 08:27 → C3A PCU 12:35 → CEDOF 12:35 → CED 12:35 → CEDOF 12:50 → CED 12:50 → CEDOF 16:18 → C4C 16:18 → C3A PCU 20:10 → C4C 20:10 → C3A PCU 20:10
PROVIDERS: Internal Medicine; Physician Assistant Medical; Specialist; Student in an Organized Health Care Education/Training Program
PROC: 0DB78ZX Excision of Stomach, Pylorus, Via Natural or Artificial Opening Endoscopic, Diagnostic (ICD-10-PCS; principal; 2017-03-13 09:30)
PROC: 0DJD8ZZ Inspection of Lower Intestinal Tract, Via Natural or Artificial Opening Endoscopic (ICD-10-PCS; 2017-03-13 09:30)
DX: E11.43 Type 2 diabetes mellitus with diabetic autonomic (poly)neuropathy (principal); E87.2 Acidosis; N18.4 Chronic kidney disease, stage 4 (severe); R11.2 Nausea with vomiting, unspecified; R19.7 Diarrhea, unspecified; K31.84 Gastroparesis; E11.42 Type 2 diabetes mellitus with diabetic polyneuropathy; E11.21 Type 2 diabetes mellitus with diabetic nephropathy; I12.9 Hypertensive chronic kidney disease with stage 1 through stage 4 chronic kidney disease, or unspecified chronic kidney disease; G47.33 Obstructive sleep apnea (adult) (pediatric); E78.5 Hyperlipidemia, unspecified; J44.9 Chronic obstructive pulmonary disease, unspecified; F41.9 Anxiety disorder, unspecified; F32.9 Major depressive disorder, single episode, unspecified; Z90.49 Acquired absence of other specified parts of digestive tract; Z90.710 Acquired absence of both cervix and uterus; R80.9 Proteinuria, unspecified; R31.29 Other microscopic hematuria; E87.6 Hypokalemia; K29.70 Gastritis, unspecified, without bleeding; K31.7 Polyp of stomach and duodenum; D63.1 Anemia in chronic kidney disease; Z88.1 Allergy status to other antibiotic agents; Z88.5 Allergy status to narcotic agent; Z79.4 Long term (current) use of insulin
CPT/HCPCS: 36415; 74176; 80048; 80076; 81003; 82150; 82728; 82947; 83690; 83735; 84100; 84703; 85025; 85027; 85610; 87077; 88305; 88312; 93005; 96361; 96374; 96375; 99285; C9113; J0360; J1650; J1815; J2250; J2270; J2550; J2765

== ENCOUNTER → 2017-05-04 | Outpatient (CLI) | payer OTHER ==
[~2017-05-04] MED LIST changes: +BREO ELLIPTA 11 EACH INH; +CITALOPRAM HBR40 MG PO; +NYSTATIN1 EAC1 MC
--- NOTE | ~2017-05-04 | MR165 ---
[facility] A Service of [facility] RADIOLOGY TEXT RESULTS PATIENT: CELSO VALDEZ LOCATION: [facility] : [birth year] UNIT #: [id number] AGE: [address]: Fredy Holder MD SEX: F ORDER DR: [id number] [address] [address] [id number] O MR#: [id number] Acc #: [id number] NAME: CELSO VALDEZ : 1970 SEX: F STUDY DATE/TIME: 05/04/2017 13:11 UNIT: [facility] ROOM: STUDY DESCRIPTION: MR Shoulder Wo Contrast Rt Attending Physician: Fredy Holder M.D. Referring Physician: Fredy Holder M.D. Ordering Physician: Fredy Holder M.D. Primary Care Physician: Palak Cano M.D. MRI CENTER REPORT This report is preliminary unless electronic signature is present. EXAM MRI right shoulder without contrast HISTORY 46-year-old female with increasing right shoulder pain for 2-3 months. Limited range of motion decreased strength. Clinical concern for capsulitis. TECHNIQUE Multiplanar, multiecho imaging performed of the right shoulder utilizing a high-field magnet and dedicated protocol. FINDINGS The bone structure and alignment unremarkable. No focal marrow edema. There is mild supraspinatus tendinopathy. No evidence of a partial or full-thickness tear. The infraspinatus also demonstrates mild tendinopathy. Teres minor and subscapularis tendons appear intact. No muscle atrophy or edema. Superior labrum, biceps anchor, and long tendon of the biceps appears intact. Anterior and posterior labrum unremarkable. Trace amount of pericapsular edema is identified though nonspecific could be indicative of capsulitis. IMPRESSION 1. [id number] diffuse supraspinatus tendinopathy as well as mild infraspinatus tendinopathy. No evidence of full-thickness rotator cuff tear. 2. Trace amount of pericapsular edema most prominent within the axillary recess. Though nonspecific, this can be an indicator of adhesive capsulitis. Dictated by... [facility] A Service of [facility] RADIOLOGY TEXT RESULTS PATIENT: CELSO VALDEZ LOCATION: [facility] : [birth year] UNIT #: [id number] AGE: [address]: Fredy Holder MD SEX: F ORDER DR: Maren Walls M.D. THIS IS AN ELECTRONICALLY VERIFIED REPORT Maren Walls M.D. at 05/08/2017 5:13 PM Yomi TD: 05/08/2017 10:04 JOB #: [id number] MRI CENTER REPORT Page 1 of 1
== END | disposition home or self-care (01) ==
LOC: SMRI 11:12
DX: T87.89 Other complications of amputation stump (principal); M25.552 Pain in left hip; M75.81 Other shoulder lesions, right shoulder
CPT/HCPCS: 73221

== ENCOUNTER → 2017-05-09 | Outpatient (CLI) | payer OTHER ==
--- NOTE | ~2017-05-09 | CT57 ---
[facility] A Service of [facility] RADIOLOGY TEXT RESULTS PATIENT: CELSO VALDEZ LOCATION: [facility] : 68 UNIT #: [id number] AGE: [address]: Madai Gallegos SEX: F ORDER DR: [id number] [facility] [address] [place]. [place], [place] [address] [id number] O MR#: [id number] Acc #: [id number] NAME: CELSO VALDEZ : 1970 SEX: F STUDY DATE/TIME: 05/09/2017 13:48 UNIT: [facility] ROOM: STUDY DESCRIPTION: CT Chest Wo Cont Attending Physician: Madai Gallegos A.P.R.N. Referring Physician: Madai Gallegos A.P.R.N. Ordering Physician: Madai Gallegos A.P.R.N. Primary Care Physician: Palak Cano M.D. MEDICAL IMAGING REPORT This report is preliminary unless electronic signature is present EXAM CT chest without contrast. DATE 05/09/2017 HISTORY Pulmonary nodule followup. Intermittent shortness of breath since October 2016. Diabetes. Hypertension. COMPARISON CT chest without contrast 11/27/2016. CT chest with contrast 04/24/2008. PROCEDURE 2 mm noncontrast axial images through the chest. Sagittal and coronal reformatted images were obtained. This CT exam was performed with one or more of the following radiation dose reduction techniques: automatic exposure control, adjustment of mA and/or kV according to patient size, and iterative reconstruction. FINDINGS Bilateral lower lobe airspace disease and the previously described 6 mL left lower lobe lung nodule have resolved since 11/27/2016. No acute airspace disease changes. No pericardial effusion. No pleural effusion. No pneumothorax. No pathologic adenopathy. Cholecystectomy. 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 The remainder of the included upper abdominal organs appear grossly unremarkable. No acute osseous abnormalities are identified. IMPRESSION 1. Resolution of 6 mm left lower lobe lung nodule and medial bibasilar [facility] A Service of [facility] RADIOLOGY TEXT RESULTS PATIENT: CELSO VALDEZ LOCATION: [facility] : 68 UNIT #: [id number] AGE: [address]: Madai Gallegos SEX: F ORDER DR: airspace disease since 11/24/2016. This suggests resolution of benign infectious-inflammatory etiology. 2. No acute chest findings. Dictated by... Vickie Pickens M.D. THIS IS AN ELECTRONICALLY VERIFIED REPORT Vickie Pickens M.D. at 05/11/2017 8:42 AM [facility]/polo TD: 05/10/2017 21:46 JOB #: [id number] MEDICAL IMAGING REPORT Page 1 of 1 COPY
== END | disposition home or self-care (01) ==
LOC: CCAT 05-02 13:20
DX: R91.1 Solitary pulmonary nodule (principal); J44.9 Chronic obstructive pulmonary disease, unspecified
CPT/HCPCS: 71250